=== PATIENT | male | born 1950 | race Caucasian/White ===

== ENCOUNTER 2019-06-17 12:49 | Observation (INO) ==
[2019-06-17 13:24] LABS: Microscopic, Urine URINE MICROSCOPIC (MICROSCOPIC)
[2019-06-17 13:28] LABS: Appearance,Urine CLEAR (Clear); Blood, Urine Negative (Negative); Color,Urine YELLOW (Yellow); Glucose,Urine (UA) Negative (Negative); Ketones,Urine TRACE (Negative); Leukocyte Esterase,Urine 1+ (Negative); PH,Urine 5.5 (5.0-8.5); Protein,Urine Negative (Negative); Specific Gravity, Urine >= 1.030 (1.005-1.030); Urobilinogen,Urine 0.2 EU/dl (0.2)
--- NOTE | 2019-06-17 13:29 | Emergency Department Note ---
ED Disposition Clinical Impression: Sinus bradycardia, Pre-syncope, Urinary tract infection Disposition: Admitted as Observation Condition on Discharge: Serious Referrals: Provider,Referral, [Primary Care Provider] - Time of Disposition: 15:06 - Critical Care Critical Care Time: No Attestation: On 06/17/19, the high probability of a clinically significant, sudden or life threatening deterioration of the following system(s) required my full and direct attention, intervention and personal management. The time I documented below is in addition to time spent performing reported procedures but includes the following listed in this critical care notation. Medical Decision Making - Medical Records Medical records reviewed: Yes: I reviewed the patient's medical records. - Fabio Inquiry Pt receiving controlled substance: No Vital Signs: 06/17/19 13:08 06/17/19 13:12 Temperature 97.6 F 97.6 F Temperature Source Oral Oral Pulse Rate [Left] 85 86 Respiratory Rate 18 20 Blood Pressure [Left Arm] 166/86 H 166/86 H Blood Pressure Mean [Left Arm] 112 112 Blood Pressure Source [Left Arm] Automatic Cuff Automatic Cuff Blood Pressure Position [Left Arm] Sitting Sitting 02 Sat by Pulse Oximetry 98 96 Oxygen Delivery Method Room Air - Lab Data Lab results reviewed: Yes: I reviewed the patient's lab results. Lab Results 06/17/19 13:11: Urine Color Yellow, Urine Appearance Clear, Urine pH 5.5, Ur Specific [place] >= 1.030, Urine Protein Negative, Urine Glucose (UA) Negative, Urine Ketones Trace, Urine Blood Negative, Urine Nitrate Positive, Urine Bilirubin Negative, Urine Urobilinogen 0.2, Ur Leukocyte Esterase 1+ A, Urine RBC None, Urine WBC 50-100, Ur Squamous Epith Cells 5-10, Urine Bacteria 3+ 06/17/19 13:33: WBC 10.7, RBC 5.16, Hgb 16.1, Hct 47.3, MCV 91.7, MCH 31.2, MCHC 34.1, RDW 13.7, Plt Count 181, MPV 8.5, Neut % (Auto) 68.8, Lymph % (Auto) 22.0, [place] % (Auto) 5.1, Eos % (Auto) 3.4, Baso % (Auto) 0.8, Neut # (Auto) 7.4, Lymph # (Auto) 2.4, [place] # (Auto) 0.5, Eos # (Auto) 0.4, Baso # (Auto) 0.1 06/17/19 13:33: Sodium 136, Potassium 3.6, Chloride 102, Carbon Dioxide 28, Anion Gap 9.6, BUN 19 H, Creatinine 1.46 H, Estimated Creat Clear 47, Estimated GFR 48 L, Est GFR ( Amer) 58 L, Glucose 71 L, Calcium 8.6, Total Bilirubin 0.5, AST 15, ALT 14, Alkaline Phosphatase 100, Troponin I < 0.02, Total Protein 7.6, Albumin 4.0, Globulin 3.6 H, Albumin/Globulin Ratio 1.1 06/17/19 13:33: Magnesium 2.1 Result diagrams: 06/17/19 13:33 06/17/19 13:33 Orders (Tests/Meds): ED MEDICATIONS Discontinued Medications Generic Name Dose Route Start Last Admin Trade Name Freq PRN Reason Stop Dose Admin Sodium Chloride 1,000 mls @ 999 mls/hr 06/17/19 13:30 06/17/19 13:24 Sod Chlor 0.9% 1000ml Bag IV 06/17/19 14:30 999 mls/hr .Q1H1M TRISH Administration ORDERS Category Date Time Status Chest XR 2 view (NOT portable) [XR chest 2V] Stat Exams 06/17/19 13:19 Taken Lactic Acid Stat Lab 06/17/19 15:04 Ordered Troponin I Q3H Lab 06/17/19 16:30 Ordered Troponin I Q3H Lab 06/17/19 19:30 Ordered Urine Culture Stat Micro 06/17/19 13:11 Received - ECG Data Tracing #1 I reviewed this ECG and interpreted as documented below: ECG initial impression date: 06/17/19 ECG initial impression time: 13:18 Normal Sinus Rhythm: No (Sinus bradycardia) Arrhythmias present: sinus pasha Additional Comments: Sinus bradycardia otherwise normal EKG. General Adult HPI - General Chief complaint: Dizziness Stated complaint: Dizziness and neck pain Time Seen by Provider: 06/17/19 13:10 Mode of Arrival: Ambulatory Limitations: No Limitations Description of Symptoms (Recalled from ER Triage Doc. by RN): Patient reports getting choked while eating lunch and now is expereincing dizziness and neck pain. - History of Present Illness HPI narrative: 69-year old male presents to the emergency department with lightheadedness after a choking episode today. However, the patient states he has had lightheadedness for the past couple of weeks. Onset (ago): hour(s) (1) Location: head Severity: moderate Consistency: intermittent Relieving factors: none Exacerbating factors: none Associated symptoms: malaise, weakness, other (Presyncope) Treatments prior to arrival: none - Related Data Home Medications Medication Instructions Recorded Confirmed Lisinopril [Lisinopril 40mg Tablet] 40 mg PO DAILY 06/17/19 06/17/19 Allergies Allergy/AdvReac Type Severity Reaction Status Date / Time No Known Allergies Allergy Unknown Uncoded 07/11/17 15:21 [facility] History - Hepatitis A Screen Drug use history?: No High risk sexual behaviors?: No History of sexually transmitted infection?: No Currently employed?: No Childcare worker?: No Do you have indoor plumbing?: Yes Do you have electricity?: Yes Attestation statement:: This patient has been screened for Hepatitis A risk factors. I have reviewed the patient's past medical history: Yes Medical History: Reports:: Coronary Artery Disease, Hypertension Denies:: Cancer, Diabetes Mellitus Type 1, Diabetes Mellitus Type 2 Other Surgeries: Yes: Cardiac Catheterization (Stents placed 15 years ago.) - Social History Smoking Status: Current every day smoker Tobacco Type: cigarettes # Packs/Day (cigarettes): 1 Alcohol Intake: never Occupational Status: retired Family Hx:: Coronary Artery Disease, Hypertension ROS Obtained: Yes All systems reviewed & no additional complaints - Constitutional Constitutional: Reports malaise, Reports weakness - Eyes Eyes: Reports system reviewed and no additional complaints, except as docu - ENT Ears, Nose, Mouth, and Throat: Reports system reviewed and no additional complaints, except as docu - Cardiovascular Cardiovascular: Reports slow heart rate, Reports other (Lightheadedness) - Respiratory Respiratory: Yes system reviewed and no additional complaints, except as docu - Gastrointestinal Gastrointestingal: Reports: system reviewed and no additional complaints, except as docu - Genitourinary Male Genitourinary: Reports system reviewed and no additional complaints, except as docu - Musculoskeletal Musculoskeletal: Reports system reviewed and no additional complaints, except as docu - Integumentary/Breasts Skin/Breast: Reports system reviewed and no additional complaints, except as docu - Neurologic Neurologic: Reports system reviewed and no additional complaints, except as docu - Endocrine Endocrine: Reports system reviewed and no additional complaints, except as docu - Hematologic/Lymphatic Henatologic/Lymphatic: Reports system reviewed and no additional complaints, except as docu - Allergic/Immunologic Allergic/Immunologic: Reports system reviewed and no additional complaints, except as docu Physical Exam - General General appearance: alert, anxious - Head Head exam: atraumatic, normocephalic, normal inspection - Eye Eye exam: Present: normal appearance, PERRL, EOMI - ENT ENT exam: Present: normal exam - Neck Neck exam: Present: normal inspection, full ROM, trachea midline. Absent: meningismus, lymphadenopathy - Chest Chest inspection: Present: normal inspection, symmetric chest wall rise. Ab sent: tenderness - Respiratory Respiratory exam: Present: normal lung sounds bilaterally. Absent: respiratory distress - Cardiovascular Cardiovascular exam: Present: normal rhythm, bradycardia, normal heart sounds - Abdominal Exam Abdominal exam: Present: soft, normal bowel sounds. Absent: distention, tenderness, guarding - Extremities Exam Extremities exam: Present: normal inspection, full ROM, normal capillary refill. Absent: calf tenderness - Back Exam Back exam: Present: normal inspection. Absent: tenderness - Neurological Exam Neurological exam: Present: alert, oriented X3, CN II-XII intact, normal gait, reflexes normal. Absent: motor sensory deficit - Psychiatric Psychiatric exam: Present: normal affect, normal mood - Skin Skin exam: Present: warm, dry, intact, normal color - Lymphatic Lymphatic Findings: no adenopathy
[2019-06-17 13:41] LABS: Bilirubin,Urine Negative (Negative)
[2019-06-17 13:49] LABS: Bacteria,Urine 3+ /lpf; WBC,Urine 50-100 #/hpf (0-3)
[2019-06-17 13:56] LABS: Alanine Aminotransferase 14 U/L (12-78); Albumin/Globulin Ratio 1.1 (1.1-1.8); Alkaline Phosphatase 100 U/L (46-116); Anion Gap 9.6 mEq/L (5-15); Aspartate Amino Transferase 15 U/L (15-37); Bilirubin,Total 0.5 mg/dL (0.2-1.0); Blood Urea Nitrogen 19 mg/dL (7-18); Calcium 8.6 mg/dL (8.5-10.1); Carbon Dioxide 28 mmol/L (21.0-32.0); Chloride 102 mmol/L (98-107); Globulin 3.6 gm/dl (1.3-3.2); Glucose 71 mg/dL (74-106); Sodium 136 mmol/L (136-145); Total Protein,Serum 7.6 gm/dL (6.4-8.2)
[2019-06-17 14:17] LABS: Basophils # 0.1 K/mm3 (0-0.2); Basophils % 0.8 % (0.1-2.0); Eosinophils # 0.4 K/mm3 (0.0-0.4); Eosinophils % 3.4 % (0.1-12.0); Hematocrit 47.3 % (42.0-52.0); Hemoglobin 16.1 g/dL (14.1-18.0); Lymphocytes # 2.4 K/mm3 (0.7-4.5); Mean Corpuscular HGB Conc 34.1 g/dL (31.8-35.4); Mean Corpuscular Volume 91.7 fl (80-94); Mean Platelet Volume 8.5 fl (7.4-10.4); Monocytes # 0.5 K/mm3 (0.1-1.0); Monocytes % 5.1 % (1.7-9.3); Neutrophils # 7.4 K/mm3 (1.8-7.8); Neutrophils % 68.8 % (37.0-80.0); Platelet Count 181 K/mm3 (142-424); Red Blood Count 5.16 M/mm3 (4.60-6.20); Red Cell Distribution Width 13.7 % (11.5-17.5); White Blood Count 10.7 K/mm3 (4.8-10.8)
--- NOTE | 2019-06-17 17:02 | History & Physical Report ---
*Admission Date: 06/17/19 *Chief complaint: dizziness *History of present illness: Patient is a 69-year-old male who presented to our ED with syncopal episodes and dizziness at work. He mentions that he has been suffering with dizziness for the past few months. His physician is Dr. Lake is at [place] and was trying to get ultrasound of his carotids for quite some time now but never got around actually getting the ultrasound. He denies being on any hyperlipidemia medications at this time. He endorses of having essential hypertension and takes lisinopril at home. In the ED his work-up was benign except for mild leukoesterase in his urine. Ultrasound obtained earlier today showed 75 to 99% stenosis on the right internal carotid. [facility] History I have reviewed the patient's past medical history: Yes Medical History: Reports:: Coronary Artery Disease, Hypertension Denies:: Cancer, Diabetes Mellitus Type 1, Diabetes Mellitus Type 2 *Have you ever received a pneumonia vaccine?: No *Have you received a flu vaccine this season?: No Other Surgeries: Yes: Cardiac Catheterization (Stents placed 15 years ago.) - *Social History Smoking Status: Current every day smoker Tobacco Type: cigarettes # Packs/Day (cigarettes): 1 Alcohol Intake: never Substance Use Type: marijuana Last Used Substance: days (ago) *Occupational Status:: retired *Travel in the last 8 weeks: None Family Hx:: Coronary Artery Disease, Hypertension Review of Systems - Constitutional Reports fatigue - Eyes Denies change in vision - ENT Denies bleeding gums, Denies dry mouth, Denies difficulty swallowing - *Cardiovascular Denies chest pain, Denies chest pain at rest, Denies chest pain with activity - *Respiratory Denies change in phlegm color, Denies chest congestion, Denies cough - *Gastrointestinal Denies abdominal pain, Denies change in bowel habits, Denies coffee ground vomit - *Genitourinary Denies difficulty urinating, Denies painful urination - *Musculoskeletal Denies abnormal walking, Denies decreased muscle mass - Integumentary/Breasts Denies bleeding lesions, Denies change in hair - *Neurologic Reports weakness, Denies abnormal hearing - Psychiatric Denies abnormal sleep pattern, Denies lack of enjoyment - Endocrine Denies excessive sweating - Hematologic/Lymphatic Denies easy bruising - Allergic/Immunologic Denies GI upset with certain foods, Denies itchy eyes Meds Home Medications Medication Instructions Recorded Confirmed Type Lisinopril [Lisinopril 40mg Tablet] 40 mg PO DAILY 06/17/19 06/17/19 History Allergies Allergy/AdvReac Type Severity Reaction Status Date / Time No Known Allergies Allergy Unverified 06/17/19 15:53 Exam Vital signs and Labs for Last 24 Hours: Temp Pulse Resp BP Pulse Ox 97.6 F 86 20 166/86 H 96 06/17/19 15:29 06/17/19 15:29 06/17/19 15:29 06/17/19 15:29 06/17/19 13:12 Laboratory Results - last 24 hr 06/17/19 13:11: Urine Color Yellow, Urine Appearance Clear, Urine pH 5.5, Ur Specific [place] >= 1.030, Urine Protein Negative, Urine Glucose (UA) Negative, Urine Ketones Trace, Urine Blood Negative, Urine Nitrate Positive, Urine Bilirubin Negative, Urine Urobilinogen 0.2, Ur Leukocyte Esterase 1+ A, Urine RBC None, Urine WBC 50-100, Ur Squamous Epith Cells 5-10, Urine Bacteria 3+ 06/17/19 13:33: WBC 10.7, RBC 5.16, Hgb 16.1, Hct 47.3, MCV 91.7, MCH 31.2, MCHC 34.1, RDW 13.7, Plt Count 181, MPV 8.5, Neut % (Auto) 68.8, Lymph % (Auto) 22.0, [place] % (Auto) 5.1, Eos % (Auto) 3.4, Baso % (Auto) 0.8, Neut # (Auto) 7.4, Lymph # (Auto) 2.4, [place] # (Auto) 0.5, Eos # (Auto) 0.4, Baso # (Auto) 0.1 06/17/19 13:33: Sodium 136, Potassium 3.6, Chloride 102, Carbon Dioxide 28, Anion Gap 9.6, BUN 19 H, Creatinine 1.46 H, Estimated Creat Clear 47, Estimated GFR 48 L, Est GFR ( Amer) 58 L, Glucose 71 L, Calcium 8.6, Total Bilirubin 0.5, AST 15, ALT 14, Alkaline Phosphatase 100, Troponin I < 0.02, Total Protein 7.6, Albumin 4.0, Globulin 3.6 H, Albumin/Globulin Ratio 1.1 06/17/19 13:33: Magnesium 2.1 I & O for Last 24 hours: Intake & Output 06/15/19 06/16/19 06/17/19 06/18/19 11:59 11:59 11:59 11:59 Weight 153 lb - *Routine HEENT Exam Head: Present: normocephalic Eye: Present: EOMI, PERRL ENT: Present: mucous membranes dry - *Routine Neck Exam Present: supple. Absent: lymphadenopathy - *Routine Respiratory Exam Present: CTA bilaterally - *Routine Cardiovascular Exam Present: RRR Comments: carotid bruit noted on right - *Routine Abdominal Exam Present: soft, normoactive bowel sounds. Absent: tenderness - *Routine Extremities Exam Absent: cyanosis, clubbing, edema - *Routine Skin Exam Present: warm. Absent: rash - *Routine Neurological Exam Present: alert, oriented X3 Assessment and Plan (1) Pre-syncope Current visit: Yes Status: Acute Category: Medical Code(s): R55 - Syncope and collapse (2) Urinary tract infection Current visit: Yes Status: Acute Category: Medical Code(s): N39.0 - Urinary tract infection, site not specified (3) Stenosis of carotid artery Current visit: Yes Status: Acute Category: Medical Code(s): I65.29 - Occlusion and stenosis of unspecified carotid artery (4) Tobacco dependence Current visit: Yes Status: Acute Category: Medical Code(s): F17.200 - Nicotine dependence, unspecified, uncomplicated (5) HTN (hypertension) Current visit: Yes Status: Acute Category: Medical Code(s): I10 - Essential (primary) hypertension - Assessment and plan all Dx Assessment and Plan for all problems:: monitor for tonight, possible dc tommorow with outpatient vascular surgery f/u
[2019-06-18 06:05] LABS: Basophils # 0.1 K/mm3 (0-0.2); Basophils % 1.4 % (0.1-2.0); Eosinophils # 0.3 K/mm3 (0.0-0.4); Eosinophils % 4.9 % (0.1-12.0); Hematocrit 46.9 % (42.0-52.0); Hemoglobin 16.1 g/dL (14.1-18.0); Lymphocytes # 1.8 K/mm3 (0.7-4.5); Lymphocytes % 29.5 % (10-50); Mean Corpuscular HGB Conc 34.2 g/dL (31.8-35.4); Mean Corpuscular Volume 92.1 fl (80-94); Mean Platelet Volume 7.7 fl (7.4-10.4); Monocytes # 0.4 K/mm3 (0.1-1.0); Monocytes % 7.1 % (1.7-9.3); Neutrophils # 3.6 K/mm3 (1.8-7.8); Neutrophils % 57.3 % (37.0-80.0); Platelet Count 164 K/mm3 (142-424); Red Cell Distribution Width 13.7 % (11.5-17.5); White Blood Count 6.2 K/mm3 (4.8-10.8)
[2019-06-18 06:09] LABS: INR 1.03 (0.9-1.1); Prothrombin Time 10.7 seconds (9.4-11.8)
[2019-06-18 06:21] LABS: Albumin Level 3.8 gm/dL (3.4-5.0); Anion Gap 11.5 mEq/L (5-15); Bilirubin,Total 0.4 mg/dL (0.2-1.0); Calcium 8.5 mg/dL (8.5-10.1); Chol/HDL Ratio 5.8 (1-3.5); Globulin 3.8 gm/dl (1.3-3.2); Phosphorous 2.8 mg/dL (2.4-4.9); Total Protein,Serum 7.6 gm/dL (6.4-8.2)
--- NOTE | 2019-06-18 07:49 | Progress Note ---
<Elza Zuniga - Last Filed: 06/18/19 08:39> Internal Medicine - PN: Subj *Date: 06/18/19 *Time: 08:39 Interval history: Patient is comfortable this morning. He is ambulated in the room without difficulty. He denies dizziness, chest pain, and shortness of breath. He is curious about the plan for today. He is n.p.o. for cardiology consult. He is hungry and would like to eat. He is voiding QS. Exam Vital signs and Labs for Last 24 Hours: Temp Pulse Resp BP Pulse Ox 98.6 F 58 L 17 160/85 H 97 06/18/19 04:00 06/18/19 04:00 06/18/19 04:00 06/18/19 04:00 06/18/19 04:00 Laboratory Results - last 24 hr 06/17/19 13:11: Urine Color Yellow, Urine Appearance Clear, Urine pH 5.5, Ur Specific [place] >= 1.030, Urine Protein Negative, Urine Glucose (UA) Negative, Urine Ketones Trace, Urine Blood Negative, Urine Nitrate Positive, Urine Bilirubin Negative, Urine Urobilinogen 0.2, Ur Leukocyte Esterase 1+ A, Urine RBC None, Urine WBC 50-100, Ur Squamous Epith Cells 5-10, Urine Bacteria 3+ 06/17/19 13:33: WBC 10.7, RBC 5.16, Hgb 16.1, Hct 47.3, MCV 91.7, MCH 31.2, MCHC 34.1, RDW 13.7, Plt Count 181, MPV 8.5, Neut % (Auto) 68.8, Lymph % (Auto) 22.0, [place] % (Auto) 5.1, Eos % (Auto) 3.4, Baso % (Auto) 0.8, Neut # (Auto) 7.4, Lymph # (Auto) 2.4, [place] # (Auto) 0.5, Eos # (Auto) 0.4, Baso # (Auto) 0.1 06/17/19 13:33: Sodium 136, Potassium 3.6, Chloride 102, Carbon Dioxide 28, Anion Gap 9.6, BUN 19 H, Creatinine 1.46 H, Estimated Creat Clear 47, Estimated GFR 48 L, Est GFR ( Amer) 58 L, Glucose 71 L, Calcium 8.6, Total Bilirubin 0.5, AST 15, ALT 14, Alkaline Phosphatase 100, Troponin I < 0.02, Total Protein 7.6, Albumin 4.0, Globulin 3.6 H, Albumin/Globulin Ratio 1.1 06/17/19 13:33: Magnesium 2.1 06/17/19 16:45: Lactate 0.8 06/18/19 00:10: Troponin I < 0.02 06/18/19 05:45: WBC 6.2 D, RBC 5.10, Hgb 16.1, Hct 46.9, MCV 92.1, MCH 31.5 H, MCHC 34.2, RDW 13.7, Plt Count 164, MPV 7.7, Neut % (Auto) 57.3, Lymph % (Auto) 29.5, [place] % (Auto) 7.1, Eos % (Auto) 4.9, Baso % (Auto) 1.4, Neut # (Auto) 3.6, Lymph # (Auto) 1.8, [place] # (Auto) 0.4, Eos # (Auto) 0.3, Baso # (Auto) 0.1 06/18/19 05:45: PT 10.7, INR 1.03 06/18/19 05:45: Sodium 135 L, Potassium 3.5, Chloride 103, Carbon Dioxide 24, Anion Gap 11.5, BUN 15, Creatinine 0.98 D, Estimated Creat Clear 65, Estimated GFR 76, Est GFR ( Amer) 92 D, Glucose 91 D, Calcium 8.5, Phosphorus 2.8, Magnesium 2.0, Total Bilirubin 0.4, AST 15, ALT 16, Alkaline Phosphatase 102, Total Protein 7.6, Albumin 3.8, Globulin 3.8 H, Albumin/Globulin Ratio 1.0 L, Triglycerides 104, Cholesterol 150, LDL Cholesterol 103, VLDL Cholesterol 21, HDL Cholesterol 26 L, Cholesterol/HDL Ratio 5.8 H I & O for Last 24 hours: Intake & Output 06/15/19 06/16/19 06/17/19 06/18/19 11:59 11:59 11:59 11:59 Intake Total 120 / 120 Balance 120 / 120 Weight 144 lb 3 oz Radiology Reports for the Last 24 Hours: 06/17/2019 chest x-ray IMPRESSION: Coarsened bronchovascular markings suggesting bronchitis. 06/17/2019 CT of the head IMPRESSION: 1. No acute intracranial findings. 2. Ethmoid sinus disease - Constitutional no acute distress Comments: Appears comfortable - *Routine Respiratory Exam Comments: Few bilateral scattered rhonchi - *Routine Cardiovascular Exam Present: RRR - *Routine Abdominal Exam Present: soft, normoactive bowel sounds. Absent: tenderness - *Routine Extremities Exam Present: pulses intact. Absent: edema, calf tenderness - *Routine Neurological Exam Present: alert, oriented X3 Assessment and Plan (1) Pre-syncope Current visit: Yes Status: Acute Category: Medical Code(s): R55 - Syncope and collapse (2) Urinary tract infection Current visit: Yes Status: Acute Category: Medical Code(s): N39.0 - Urinary tract infection, site not specified (3) Stenosis of carotid artery Current visit: Yes Status: Acute Category: Medical Code(s): I65.29 - Occlusion and stenosis of unspecified carotid artery (4) Tobacco dependence Current visit: Yes Status: Acute Category: Medical Code(s): F17.200 - Nicotine dependence, unspecified, uncomplicated (5) HTN (hypertension) Current visit: Yes Status: Acute Category: Medical Code(s): I10 - Essential (primary) hypertension - Assessment and plan all Dx Assessment and Plan for all problems:: Continue with antibiotic for UTI. Cardiology consult this morning. As per Dr. Negrete note probably discharge with follow-up appointment with vascular surgeon. <Virginia Negrete - Last Filed: 06/18/19 08:53> Internal Medicine - PN: Subj *Date: 06/18/19 *Time: 08:52 Exam Vital signs and Labs for Last 24 Hours: Temp Pulse Resp BP Pulse Ox 97.9 F 56 L 18 168/93 H 98 06/18/19 07:54 06/18/19 07:54 06/18/19 07:54 06/18/19 07:54 06/18/19 07:54 Laboratory Results - last 24 hr 06/17/19 13:11: Urine Color Yellow, Urine Appearance Clear, Urine pH 5.5, Ur Specific [place] >= 1.030, Urine Protein Negative, Urine Glucose (UA) Negative, Urine Ketones Trace, Urine Blood Negative, Urine Nitrate Positive, Urine Bilirubin Negative, Urine Urobilinogen 0.2, Ur Leukocyte Esterase 1+ A, Urine RBC None, Urine WBC 50-100, Ur Squamous Epith Cells 5-10, Urine Bacteria 3+ 06/17/19 13:33: WBC 10.7, RBC 5.16, Hgb 16.1, Hct 47.3, MCV 91.7, MCH 31.2, MCHC 34.1, RDW 13.7, Plt Count 181, MPV 8.5, Neut % (Auto) 68.8, Lymph % (Auto) 22.0, [place] % (Auto) 5.1, Eos % (Auto) 3.4, Baso % (Auto) 0.8, Neut # (Auto) 7.4, Lymph # (Auto) 2.4, [place] # (Auto) 0.5, Eos # (Auto) 0.4, Baso # (Auto) 0.1 06/17/19 13:33: Sodium 136, Potassium 3.6, Chloride 102, Carbon Dioxide 28, Anion Gap 9.6, BUN 19 H, Creatinine 1.46 H, Estimated Creat Clear 47, Estimated GFR 48 L, Est GFR ( Amer) 58 L, Glucose 71 L, Calcium 8.6, Total Biliru bin 0.5, AST 15, ALT 14, Alkaline Phosphatase 100, Troponin I < 0.02, Total Protein 7.6, Albumin 4.0, Globulin 3.6 H, Albumin/Globulin Ratio 1.1 06/17/19 13:33: Magnesium 2.1 06/17/19 16:45: Lactate 0.8 06/18/19 00:10: Troponin I < 0.02 06/18/19 05:45: WBC 6.2 D, RBC 5.10, Hgb 16.1, Hct 46.9, MCV 92.1, MCH 31.5 H, MCHC 34.2, RDW 13.7, Plt Count 164, MPV 7.7, Neut % (Auto) 57.3, Lymph % (Auto) 29.5, [place] % (Auto) 7.1, Eos % (Auto) 4.9, Baso % (Auto) 1.4, Neut # (Auto) 3.6, Lymph # (Auto) 1.8, [place] # (Auto) 0.4, Eos # (Auto) 0.3, Baso # (Auto) 0.1 06/18/19 05:45: PT 10.7, INR 1.03 06/18/19 05:45: Sodium 135 L, Potassium 3.5, Chloride 103, Carbon Dioxide 24, Anion Gap 11.5, BUN 15, Creatinine 0.98 D, Estimated Creat Clear 65, Estimated GFR 76, Est GFR ( Amer) 92 D, Glucose 91 D, Calcium 8.5, Phosphorus 2.8, Magnesium 2.0, Total Bilirubin 0.4, AST 15, ALT 16, Alkaline Phosphatase 102, Total Protein 7.6, Albumin 3.8, Globulin 3.8 H, Albumin/Globulin Ratio 1.0 L, Triglycerides 104, Cholesterol 150, LDL Cholesterol 103, VLDL Cholesterol 21, HDL Cholesterol 26 L, Cholesterol/HDL Ratio 5.8 H I & O for Last 24 hours: Intake & Output 06/15/19 06/16/19 06/17/19 06/18/19 11:59 11:59 11:59 11:59 Intake Total 120 / 120 Balance 120 / 120 Weight 144 lb 3 oz Microbiology Reports for the Last 24 Hours: Microbiology 06/17/19 13:11 Urine,Random Urine Culture - Preliminary Gram Negative Rods Assessment and Plan (1) Pre-syncope Current visit: Yes Status: Acute Category: Medical Code(s): R55 - Syncope and collapse (2) Urinary tract infection Current visit: Yes Status: Acute Category: Medical Code(s): N39.0 - Urinary tract infection, site not specified (3) Stenosis of carotid artery Current visit: Yes Status: Acute Category: Medical Code(s): I65.29 - Occlusion and stenosis of unspecified carotid artery (4) Tobacco dependence Current visit: Yes Status: Acute Category: Medical Code(s): F17.200 - Nicotine dependence, unspecified, uncomplicated (5) HTN (hypertension) Current visit: Yes Status: Acute Category: Medical Code(s): I10 - Essential (primary) hypertension - Assessment and plan all Dx Assessment and Plan for all problems:: discharge today with vascular surgery f/u if cardiology agrees
--- NOTE | 2019-06-18 07:58 | Pharmacy Consult Notes ---
[facility] Pharmacy VTE Monitoring - Patient Demographics Admission date: 06/17/19 Report Date: 06/18/19 Time: 07:57 Allergies/Adverse Reactions: Patient Allergies No Known Allergies Allergy (Unverified 06/17/19 15:53) Height: 1.73 m Weight: 65.402 kg Patient Problems: Current Active Problems Sinus bradycardia (Acute) Pre-syncope (Acute) Urinary tract infection (Acute) Stenosis of carotid artery (Acute) Tobacco dependence (Acute) HTN (hypertension) (Acute) - VTE Risk Labs: VTE Related Lab Results Hgb 16.1 g/dL (14.1-18.0) 06/18/19 05:45 Hct 46.9 % (42.0-52.0) 06/18/19 05:45 Plt Count 164 K/mm3 (142-424) 06/18/19 05:45 PT 10.7 seconds (9.4-11.8) 06/18/19 05:45 INR 1.03 (0.9-1.1) 06/18/19 05:45 BUN 15 mg/dL (7-18) 06/18/19 05:45 Creatinine 0.98 mg/dL (0.70-1.30) D 06/18/19 05:45 Estimated Creat Clear 65 mL/min (50-200) 06/18/19 05:45 Clinical Trial Participant: Yes - Prophylaxis Types of VTE Prophylaxis: TEDS Knee High
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
--- NOTE | 2019-06-18 11:38 | Electrocardiograph Report ---
APPROVED REPORT Exam: Resting ECG HR:51 bpm ECG Measurements Heart Rate 51 AXES [place] 158 P 64 QRSd 76 QRS 78 QT 444 T54 QTc 409 <Conclusion> Sinus bradycardia Otherwise normal ECG Electronically signed by : Erick Waller, 06/18/2019 11:38:22
--- NOTE | 2019-06-18 22:07 | Cardiology Report ---
APPROVED REPORT EXAM: Comprehensive 2D, Doppler, and color-flow Echocardiogram [employer]ist: Louisa Marlow, RT(R) Ht: 5 ft 8 in Wt: 153lbs BSA: 1.82 BP: 168/93 mmHg Indications: Smoker, syncope, HTN, CAD, 4 cardiac stents 2007, SHAMAR, hx FL 2D Dimensions Aortic Root 2.60 cm M: 3.1 - 3.7 Left Atrium 4.10 cm M: 3.0 - 4.0 LVOT 1.93 cm (M/F) 1.5-2.5 M-Mode Dimensions RVDd 2.15 cm (0.9-2.6)LVDd 4.01 cm (3.5-5.7) LVDs 3.11 cm (3.5-5.7)IVSd 1.22 cm (0.6-1.1) PWd 1.04 cm (0.6-1.1)EF (Teich) 45.70% FS 22.40% EDV (Teich) 70.40 mL ESV (Teich) 38.20 mL LV Diastology E/A Ratio 1.15 Mitral Valve MV A Velocity 53.00 (40-130 cm/s) Left Ventricle Left atrium is mildly enlarged, left ventricle is normal size, mild concentric left ventricular hypertrophy, visually estimated ejection fraction 45%, there is moderate hypokinesis involving the inferior basal and posterolateral wall. Diastolic parameters are inconclusive. Right Ventricle Right atrium and left ventricular normal size and contractility. Aortic Valve Aortic valve is minimally thickened and fibrosed. There is no aortic stenosis aortic insufficiency. Mitral Valve Mitral valve is grossly normal, there is mild mitral regurgitation. Tricuspid Valve Tricuspid valve is grossly normal, there is mild tricuspid regurgitation. Pulmonic Valve Pulmonic valve is poorly visualized. Great Vessels Aortic root is normal size. Pericardium No significant pericardial effusion noted. Conclusion 1. Mildly enlarged left atrium, normal left ventricular size, mild concentric left ventricular hypertrophy, visually estimated ejection fraction 45% with segmental wall motion abnormality described above, diastolic parameters are inconclusive. 2. Mild mitral and tricuspid regurgitation. 3. No significant pericardial effusion noted. Electronically signed by : Tomy Chen, 06/18/2019 22:07:16
--- NOTE | 2019-06-19 14:18 | Cardiology Report ---
APPROVED REPORT Focuser: HYUN Laterality: Bilateral Indications: pre-syncopal episdoes Risk Factors Hypertension: Hyperlipidemia CAD, Smoking Doppler Spectral Velocity Analysis ECA (R) 89.90/14.80 cm/sECA (L) 62.90/12.00 cm/s dICA (R) 55.60/23.00 cm/sdICA (L) 82.30/20.60 cm/s Yonis (R) 234.00/105.90 cm/smICA (L) 99.90/35.70 cm/s pICA (R) 536.00/224.50 cm/spICA (L) 108.50/27.60 cm/s dCCA (R) 62.60/18.20 cm/sdCCA (L) 79.10/20.90 cm/s pCCA (R) 54.30/12.40 cm/spCCA (L) 77.00/16.60 cm/s Vert (R) 56.10/15.50 cm/sVert (L) 30.20/8.30 cm/s ICA/CCA 8.56 ICA/CCA 1.37 Findings Duplex evaluation demonstrates stenosis of the right proximal internal carotid artery in the range of 70-99% with PSV =140 cm/sec, EDV =100 cm/sec, or IC/CC Ratio =4.0.Duplex evaluation demonstrates stenosis of the left proximal internal carotid artery in the range of 20-49%(lower-middle of scale) with PSV <140 cm/sec, EDV <100 cm/sec, and IC/CC Ratio <4.0. Incidental finding of a hyperechoic thyroid nodule noted on right. Conclusion Duplex evaluation demonstrates severe stenosis of the right proximal internal carotid artery in the range of 70-99% Duplex evaluation demonstrates stenosis of the left proximal internal carotid artery in the range of 20-49%(lower-middle of scale) Incidental finding of a hyperechoic thyroid nodule noted on right. Consider CTA for further evaluation Critical Notification Critical Value: Yes Physician Notified Date: 06/17/2019 Time: 16:35 Physician Name: Caden Electronically signed by : Jayy Patterson MD 06/19/2019 14:18:10
--- NOTE | 2019-06-22 21:22 | Discharge Summary ---
General - General Admission date:: 06/17/19 Discharge date: 06/18/19 HPI HPI: Patient is a 69-year-old male who presented to our ED with syncopal episodes and dizziness at work. He mentions that he has been suffering with dizziness for the past few months. His physician is Dr. Lake is at [place] and was trying to get an ultrasound of his carotids for quite some time now but never got around to actually getting the ultrasound. He denies being on any hyperlipidemia medications at this time. He endorses having essential hypertension and takes lisinopril at home. In the ED his work-up was benign except for mild leukesterase in his urine. Ultrasound obtained earlier today showed 75 to 99% stenosis on the right internal carotid. Hospital Course Hospital Course: The patient's chest x-ray showed a bronchitis. His carotid ultrasound showed 70-99% stenosis of the right internal carotid artery. He had a CT of the head showing ethmoid sinus disease but nothing acute. He was admitted for overnight monitoring and was started on antibiotics for UTI. The patient did have a heart cath showing severe ostial LAD stenosis with a widely patent proximal to mid vessel stent. It also showed a normal ejection fraction. There was severe right internal carotid artery stenosis on angiogram. Dr. Hernandes felt the patient was an acceptable risk to proceed with carotid endarterectomy. He felt the ostial LAD stenosis could be managed medically. The patient did have an echo showing an EF of 45%. He was stable to be discharged home with a vascular surgery follow-up for his carotid artery stenosis. His urine culture was positive for E. coli and was sensitive to Levaquin. He was discharged home on Levaquin. Objective Vital signs: Temp Pulse Resp BP Pulse Ox 97.1 F L 52 L 20 122/56 L 99 06/18/19 12:15 06/18/19 14:30 06/18/19 14:30 06/18/19 14:30 06/18/19 14:30 Narrative: - *Routine HEENT Exam Head: Present: normocephalic Eye: Present: EOMI, PERRL ENT: Present: mucous membranes dry - *Routine Neck Exam Present: supple. Absent: lymphadenopathy - *Routine Respiratory Exam Present: CTA bilaterally - *Routine Cardiovascular Exam Present: RRR Comments: carotid bruit noted on right - *Routine Abdominal Exam Present: soft, normoactive bowel sounds. Absent: tenderness - *Routine Extremities Exam Absent: cyanosis, clubbing, edema - *Routine Skin Exam Present: warm. Absent: rash - *Routine Neurological Exam Present: alert, oriented X3 DS: Diagnosis - Discharge Diagnosis (1) Pre-syncope Status: Acute (2) Urinary tract infection Status: Acute (3) Stenosis of carotid artery Status: Acute (4) Tobacco dependence Status: Acute (5) HTN (hypertension) Status: Acute Discharge Plan - Patient Discharge Instructions ACTIVITY: Ambulate as tolerated, Limited activity, No heavy lifting DIET: cardiac Patient Instructions: DI for Syncope in Adults (Fainting), DI for Cardiac Catheterization, DI for Urinary Tract Infection (UTI), DI for Surgical Site Infection, DI for Carotid Artery Stenosis - Follow up Plan Follow up with: Jeff Lorenzo [Referring] - 06/19/19 12:40 pm Unknown provider or service follow up:: 06/18/19 14:07 PCP [place] [address] Lorenzo tomorrow at 12:40 pm (already has an appt) Disposition: Home, Self-Residential Medications: Home Medications Medication Instructions Recorded Confirmed Type Lisinopril [Lisinopril 40mg Tablet] 40 mg PO DAILY 06/17/19 06/18/19 History Amlodipine Besylate [Amlodipine 10 mg PO DAILY 06/18/19 06/18/19 History 10mg Tab] Aspirin [Aspirin 325mg Tab] 325 mg PO DAILY 06/18/19 06/18/19 History Atorvastatin Calcium [Lipitor 40mg 40 mg PO HS #30 tab 06/18/19 Rx Tablet] Fluoxetine HCl [Prozac] 10 mg PO DAILY 06/18/19 06/18/19 History levoFLOXacin [Levaquin 500mg 500 mg PO DAILY #5 tab 06/18/19 Rx tab] raNITIdine HCl [Ranitidine HCl] 300 mg PO BID 06/18/19 06/18/19 History Prescriptions/Medication Reconciliation: New levoFLOXacin [Levaquin 500mg tab] 500 mg PO DAILY #5 tab Atorvastatin Calcium [Lipitor 40mg Tablet] 40 mg PO HS #30 tab Continued Amlodipine Besylate [Amlodipine 10mg Tab] 10 mg PO DAILY raNITIdine HCl [Ranitidine HCl] 300 mg PO BID Aspirin [Aspirin 325mg Tab] 325 mg PO DAILY Fluoxetine HCl [Prozac] 10 mg PO DAILY Lisinopril [Lisinopril 40mg Tablet] 40 mg PO DAILY - Problem Reconciliation Problems Reviewed?: Yes
== END 2019-06-18 15:28 | disposition home or self-care (01) ==
LOC: 2ND 12:49 → ER 12:49 → 2ND 15:35
PROVIDERS: ADMIT Emergency Medicine; ATTEND Emergency Medicine
CPT/HCPCS: 36224; 36228; 36415; 70450; 71020; 71046; 80053; 80061; 81001; 83605; 83735; 84100; 84484; 85025; 85610; 87086; 87088; 87186; 90686; 90732; 93005; 93306; 93458; 93880; 96365; 96367; 99152; 99153; 99284; C1725; C1769; G0378; J1644; Q9967

== ENCOUNTER 2022-11-11 07:37 | Emergency (ER) | payer MEDICARE, SELFPAY ==
[2022-11-11 07:43] VITALS: BP 173/89; PULSE 43; O2SAT 99
[2022-11-11 07:51] VITALS: BP 173/89; PULSE 100; RESP 16; TEMP 36.6; O2SAT 100; BMI 22.5
[2022-11-11 08:00] VITALS: BP 155/86; PULSE 43; O2SAT 98
--- NOTE | 2022-11-11 08:10 | HMH.EDEYEP ---
Discharge Plan Disposition Patient Disposition: Home, Self-Care Condition: Fair Chief Complaint: Eye Problems Prescriptions Prescriptions: No Action clopidogrel 75 mg tablet 75 mg PO DAILY Label Comments: TAKE 1 TABLET BY MOUTH ONCE DAILY amlodipine 10 mg tablet 10 mg PO BID Qty: 30 4RF lisinopril 40 MG tablet 40 mg PO DAILY ranitidine HCl 300 MG tablet 300 mg PO BID amlodipine 10 MG tablet 10 mg PO DAILY fluoxetine 10 MG capsule 10 mg PO DAILY atorvastatin 40 MG tablet 40 mg PO HS Qty: 30 0RF aspirin 325 mg tablet 81 mg PO DAILY Referrals Follow up/Referrals: Provider,Referral, MD [Primary Care Provider] - See instructions Activity Restrictions/Add. Instructions Additional Instructions/Restrictions: Please go straight to the eye clinic from here. They are expecting you. Dr. Tate will remove the foreign body in your eye. Return to the emergency department immediately if you are unable to go to this eye clinic. Also return to the emergency department if your symptoms worsen in any way. Clinical Impressions Clinical Impression: Acute foreign body of left cornea, Corneal abrasion Instructions Patient Instructions: DI for Corneal Abrasion Discharge ED Provider: Fly Walker Eye Problem HPI General Chief complaint: Eye Problems Stated complaint: Possible foreign object LT eye AO@home 11/10 Time Seen by Provider: 11/11/22 08:10 Mode of Arrival: Ambulatory Source of Information: Patient Limitations: No Limitations Description of Symptoms (Recalled from ER Triage Doc. by RN): pt comes in for possible foreign body in left eye. pt reports that he was grinding metal yesterday evening and feel like he has something in his eye. pts eye red, swollen. pt states he has no visual deficits. 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 He was grinding metal. His last tetanus immunization was 1 year ago. chief complaint: foreign body Related Data Home Medications Medication Instructions Recorded Confirmed lisinopril 40 mg tablet 40 mg PO DAILY BP 06/17/19 09/30/19 amlodipine 10 mg tablet 10 mg PO DAILY BLOOD PRESSURE 06/18/19 09/30/19 fluoxetine 10 mg capsule 10 mg PO DAILY NERVES 06/18/19 09/30/19 ranitidine HCl 300 mg tablet 300 mg PO BID STOMACH 06/18/19 09/30/19 aspirin 325 mg tablet 81 mg PO DAILY HEART 09/30/19 09/30/19 clopidogrel 75 mg tablet 75 mg PO DAILY 09/30/19 09/30/19 Previous Rx's Medication Instructions Recorded atorvastatin 40 mg tablet 40 mg PO HS #30 tabs 06/18/19 amlodipine 10 mg tablet 10 mg PO BID #30 tabs 09/30/19 Allergies Allergy/AdvReac Type Severity Reaction Status Date / Time No Known Allergies Allergy Verified 09/30/19 09:20 [facility] Disclaimer: The information contained in this section may have been updated after the patient was seen, as this information can be updated by other users. Social History Smoking Status: Never smoker alcohol intake: never substance use type: marijuana current occupational status: retired Travel in the last 8 weeks: Inside the [place] ROS Obtained: Yes All systems reviewed & no additional complaints except as documented Physical Exam General General appearance: alert and in no apparent distress Head Head exam: atraumatic Eye Eye exam: Present PERRL, conjunctival redness (Left) and other (There is a foreign body in the cornea of the left eye on the medial aspect.) ENT ENT exam: Present normal exam Neck Neck exam: Present normal inspection Respiratory Respiratory exam: Present normal lung sounds bilaterally Cardiovascular Cardiovascular exam: Present regular rate Neurological Exam Neurological exam: Present alert and oriented X3 Medical Decision Making Medical Records Medical records reviewed: Yes I reviewed the pa
--- NOTE | 2022-11-11 08:18 | PC.NURSE ---
phone call made to Dr. Tate for consult, message left on voicemail for call back.
[2022-11-11 08:30] VITALS: BP 142/81; PULSE 42; O2SAT 100
--- NOTE | 2022-11-11 08:31 | PC.NURSE ---
Dr. Walker speaking with Dr. Tate at this time
--- NOTE | 2022-11-11 08:56 | PC.NURSE ---
Rounded on patient; call light within reach
[2022-11-11 09:02] VITALS: BP 142/81; PULSE 42; RESP 16; TEMP 36.6; O2SAT 100
[2022-11-11 09:06] VITALS: BP 142/81; PULSE 44; RESP 16; TEMP 36.7
== END 2022-11-11 09:08 | disposition home or self-care (01) ==
PROVIDERS: Emergency Provider Emergency Medicine
DX: S05.02XA Injury of conjunctiva and corneal abrasion without foreign body, left eye, initial encounter (principal); W22.8XXA Striking against or struck by other objects, initial encounter
CPT/HCPCS: 99283; 99284

== ENCOUNTER 2025-01-27 01:51 | Emergency (ER) | payer OTHER, SELFPAY ==
[2025-01-27] VITALS (21 sets, daily range): BP systolic 134–203; BP diastolic 81–109; PULSE 72–95; RESP 14–24; TEMP 36.7; O2SAT 91–97; BMI 22.1
--- NOTE | 2025-01-27 01:54 | ECG_ITS ---
APPROVED REPORT Exam: Resting ECG HR:102 bpm ECG Measurements Heart Rate 102 AXES RI 144 P 83 QRSd 76 QRS 87 QT 350 T 73 QTc 409 Conclusion SINUS TACHYCARDIA MODERATE ST DEPRESSION [0.05+ mV ST DEPRESSION] ABNORMAL ECG UNCONFIRMED REPORT Electronically signed by : MILLER CASAS, 01/27/2025 04:57:41
--- NOTE | 2025-01-27 01:56 | HMH.EDGENADL ---
Discharge Plan Disposition Patient Disposition: Home, Self-Care Prescriptions Prescriptions: New levofloxacin 750 mg tablet 750 mg PO DAILY 5 Days Qty: 5 0RF No Action clopidogrel 75 mg tablet 75 mg PO DAILY Patient Comments: TAKE 1 TABLET BY MOUTH ONCE DAILY amlodipine 10 mg tablet 10 mg PO BID Qty: 30 4RF lisinopril 40 MG tablet 40 mg PO DAILY ranitidine HCl 300 MG tablet 300 mg PO BID amlodipine 10 MG tablet 10 mg PO DAILY fluoxetine 10 MG capsule 10 mg PO DAILY atorvastatin 40 MG tablet 40 mg PO HS Qty: 30 0RF aspirin 325 mg tablet 81 mg PO DAILY Referrals Follow up/Referrals: Provider,Referral, MD [Primary Care Provider, Medical] - See instructions Activity Restrictions/Add. Instructions Additional Instructions/Restrictions: Please take antibiotics as prescribed for treatment of pneumonia. Please follow-up with your PCP for further assessment of the mass noted in your lungs. If you are having worsening or recurrent chest pain, recommend reassessment. Clinical Impressions Clinical Impression: Pneumonia, Chest pain, Mass of lung Print Language Print Language: Ukrainian Discharge ED Provider: Donald Benoit General Adult HPI General Chief complaint: Chest Pain Stated complaint: chest pain Time Seen by Provider: 01/27/25 01:53 History of Present Illness HPI narrative: 74-year-old male with history of hypertension, hyperlipidemia, coronary artery disease status post stents and CABG presents for chest pain. He reports that he has had a cough productive of clear phlegm for the last several days and has been more short of breath than normal. He presents tonight because he had chest pain that awoke him from sleep. Left-sided, sharp. He took some Tylenol. Reports that he did drive back from [place] a couple of weeks ago. Related Data Home Medications ?Medication ?Instructions ?Recorded ?Confirmed lisinopril 40 mg tablet 40 mg PO DAILY BP 06/17/19 09/30/19 amlodipine 10 mg tablet 10 mg PO DAILY BLOOD PRESSURE 06/18/19 09/30/19 fluoxetine 10 mg capsule 10 mg PO DAILY NERVES 06/18/19 09/30/19 ranitidine HCl 300 mg tablet 300 mg PO BID STOMACH 06/18/19 09/30/19 aspirin 325 mg tablet 81 mg PO DAILY HEART 09/30/19 09/30/19 clopidogrel 75 mg tablet 75 mg PO DAILY 09/30/19 09/30/19 Previous Rx's ?Medication ?Instructions ?Recorded atorvastatin 40 mg tablet 40 mg PO HS #30 tabs 06/18/19 amlodipine 10 mg tablet 10 mg PO BID #30 tabs 09/30/19 levofloxacin 750 mg tablet 750 mg PO DAILY 5 days #5 tabs 01/27/25 Allergies Allergy/AdvReac Type Severity Reaction Status Date / Time Penicillins AdvReac Unknown Verified 01/27/25 01:55 allergy reaction [facility] Disclaimer: The information contained in this section may have been updated after the patient was seen, as this information can be updated by other users. Social History Smoking Status: Current every day smoker tobacco type: cigarettes packs per day: 1 alcohol intake: never substance use type: marijuana current occupational status: retired Travel in the last 8 weeks?: Inside the [place] Have you lived/traveled outside US in past 30 days?: No Contact w/someone who lives/traveled outside US past 30 days?: No Exposure to someone with infectious disease in past 14 days?: No Do you have a fever (greater than 100.4 F or 38 C)?: No Have you tested positive for COVID-19?: No Exposed to someone with COVID-19 in past 14 days?: No Do you have a sore throat?: No Do you have a cough?: No Do you have any weakness?: No Do you have any diarrhea?: No Are you experiencing any unusual bleeding?: No Do you have any muscle aches/pain?: No Do you have any abdominal pain?: No Are you experiencing loss of taste or smell?: No Other Medical History Have you received the Flu Vaccine for this season: Yes Have you received the Pneumonia Vaccine: No ROS Obtained: Yes All systems reviewed & no additional complaints except as documented Physical Exam General General appearance: alert and anxious Head Head exam: atraumatic and normocephalic Eye Eye exam: Present normal appearance, PERRL and EOMI ENT ENT exam: Present normal oropharynx and normal external ear exam Neck Neck exam: Present normal inspection and full ROM Chest Chest inspection: Present normal inspection and symmetric chest wall rise; Absent tenderness Respiratory Respiratory exam: Present normal lung sounds bilaterally; Absent respiratory distress Cardiovascular Cardiovascular exam: Present normal rhythm and tachycardia Abdominal Exam Abdominal exam: Present soft; Absent distention, tenderness or guarding Extremities Exam Extremities exam: Present normal inspection; Absent edema or joint swelling Back Exam Back exam: Present normal inspection; Absent tenderness Neurological Exam Neurological exam: Present alert and oriented X3; Absent motor sensory deficit Psychiatric Psychiatric exam: Present normal affect and normal mood Skin Skin exam: Present warm, dry and normal color Lymphatic Lymphatic Findings: no adenopathy Medical Decision Making Medical Records Medical records reviewed: Yes I reviewed the patient's medical records. Screening: Per USPSTF and CDC recommendations, given the prevalence of disease in our region, it is our hospital?s policy to screen for HIV and viral Hepatitis for all patients aged 18 and over and those with ongoing risk factors. Fabio Inquiry Pt receiving controlled substance: No Fabio was queried for this patient: No Vital Signs: 01/27/25 01:57 01/27/25 02:15 01/27/25 02:20 Temperature 98.1 F Temperature Source Temporal Artery Scan Pulse Rate 74 75 Pulse Rate [Right] 95 H Respiratory Rate 14 23 17 Blood Pressure 165/89 H 165/87 H Blood Pressure [Right Arm] 203/109 H Blood Pressure Mean 107 111 Blood Pressure Mean [Right Arm] 140 Blood Pressure Source [Right Arm] Automatic Cuff Blood Pressure Position [Right Arm] Sitting 02 Sat by Pulse Oximetry 95 93 L 93 L Oxygen Delivery Method Room Air 01/27/25 02:25 01/27/25 02:30 01/27/25 02:35 Temperature Temperature Source Pulse Rate 80 80 83 Pulse Rate [Right] Respiratory Rate 24 24 Blood Pressure 154/87 H 148/82 H 152/84 H Blood Pressure [Right Arm] Blood Pressure Mean 117 105 114 Blood Pressure Mean [Right Arm] Blood Pressure Source [Right Arm] Blood Pressure Position [Right Arm] 02 Sat by Pulse Oximetry 92 L 92 L 91 L Oxygen Delivery Method 01/27/25 02:40 01/27/25 03:00 01/27/25 03:05 Temperature Temperature Source Pulse Rate 84 79 77 Pulse Rate [Right] Respiratory Rate Blood Pressure 145/81 H 159/84 H 158/83 H Blood Pressure [Right Arm] Blood Pressure Mean 106 124 122 Blood Pressure Mean [Right Arm] Blood Pressure Source [Right Arm] Blood Pressure Position [Right Arm] 02 Sat by Pulse Oximetry 91 L 92 L 92 L Oxygen Delivery Method 01/27/25 03:20 01/27/25 03:25 01/27/25 03:30 Temperature Temperature Source Pulse Rate 75 77 75 Pulse Rate [Right] Respiratory Rate 19 18 22 Blood Pressure 142/82 H 155/84 H 164/88 H Blood Pressure [Right Arm] Blood Pressure Mean 115 107 113 Blood Pressure Mean [Right Arm] Blood Pressure Source [Right Arm] Blood Pressure Position [Right Arm] 02 Sat by Pulse Oximetry 93 L 94 L 94 L Oxygen Delivery Method 01/27/25 03:35 01/27/25 03:40 01/27/25 04:00 Temperature Temperature Source Pulse Rate 75 78 75 Pulse Rate [Right] Respiratory Rate 22 20 Blood Pressure 147/91 H 156/86 H 160/89 H Blood Pressure [Right Arm] Blood Pressure Mean 108 109 125 Blood Pressure Mean [Right Arm] Blood Pressure Source [Right Arm] Blood Pressure Position [Right Arm] 02 Sat by Pulse Oximetry 94 L 94 L 93 L Oxygen Delivery Method 01/27/25 04:05 01/27/25 04:20 01/27/25 04:55 Temperature Temperature Source Pulse Rate 73 72 Pulse Rate [Right] Respiratory Rate 14 23 Blood Pressure 154/88 H 134/85 160/91 H Blood Pressure [Right Arm] Blood Pressure Mean 116 103 131 Blood Pressure Mean [Right Arm] Blood Pressure Source [Right Arm] Blood Pressure Position [Right Arm] 02 Sat by Pulse Oximetry 95 94 L Oxygen Delivery Method 01/27/25 05:30 Temperature Temperature Source Pulse Rate 77 Pulse Rate [Right] Respiratory Rate 17 Blood Pressure 173/107 H Blood Pressure [Right Arm] Blood Pressure Mean 120 Blood Pressure Mean [Right Arm] Blood Pressure Source [Right Arm] Blood Pressure Position [Right Arm] 02 Sat by Pulse Oximetry 97 Oxygen Delivery Method Lab Data Lab results reviewed: Yes I reviewed the patient's lab results. Lab Results 01/27/25 01:54: WBC 8.8, RBC 4.74, Hgb 14.5, Hct 41.6 L, MCV 87.8, MCH 30.6, MCHC 34.9, RDW 13.4, Plt Count 177, MPV 10.8 H, Neut % (Auto) 62.9, Lymph % (Auto) 25.5, [place] % (Auto) 8.9, Eos % (Auto) 2.0, Baso % (Auto) 0.5, Neut # (Auto) 5.5, Lymph # (Auto) 2.2, [place] # (Auto) 0.8, Eos # (Auto) 0.2, Baso # (Auto) 0.0, D-Dimer 0.90 H, Sodium 139, Potassium 3.2 L, Chloride 102, Carbon Dioxide 28, Anion Gap 12.2, BUN 17, Creatinine 0.70, Estimated Creat Clear 58, Estimated GFR 111, Est GFR ( Amer) 134, Glucose 107 H, Calcium 8.7, Total Bilirubin 0.8, AST 23, ALT 13, Alkaline Phosphatase 112, Troponin I < 0.01, Total Protein 7.5, Albumin 3.8, Globulin 3.7 H, Albumin/Globulin Ratio 1.0 L, Lipase 32, HCV Ab KELLI w/Rflx PCR Qn Negative, HIV Ag/Ab Combo Qual Negative 01/27/25 04:45: Troponin I < 0.01 01/27/25 01:54 01/27/25 01:54 Orders (Tests/Meds): ED MEDICATIONS Generic Name Dose Route Start Last Admin Trade Name Freq PRN Reason Stop Dose Admin Nitroglycerin 0.4 mg 01/27/25 01:53 01/27/25 02:05 Nitroglycerin 0.4mg Sl Tablet SL 02/26/25 01:52 0.4 mg Q5MINP PRN Administration Chest Pain Sodium Chloride 10 ml 01/27/25 02:47 Sodium Chloride 0.9% 10ml Syr (Rad Only) IV 02/26/25 02:46 NEEDED PRN Maintain IV Site Discontinued Medications Generic Name Dose Route Start Last Admin Trade Name Freq PRN Reason Stop Dose Admin Aspirin 324 mg 01/27/25 01:53 01/27/25 02:05 Aspirin 81mg Chewable Tablet PO 01/27/25 01:54 324 mg ONCE ONE Administration Belladonna Alkaloids 60 ml 01/27/25 01:53 01/27/25 02:05 Belladonna Alkaloids 60 Ml Ml PO 01/27/25 01:54 60 ml ONCE ONE Administration Ceftriaxone Sodium 1 gm/ 50 mls @ 100 mls/hr 01/27/25 04:07 01/27/25 04:19 Sodium Chloride IV 01/27/25 04:36 100 mls/hr ONCE ONE Administration Azithromycin 500 mg/ Sodium 250 mls @ 250 mls/hr 01/27/25 04:08 01/27/25 04:40 Chloride IV 01/27/25 04:09 250 mls/hr ONCE ONE Administration Iopamidol 70 ml 01/27/25 02:47 Iopamidol-370 (76%);100ml Bottle IV 01/27/25 02:48 ONCE ONE Sodium Chloride 40 ml 01/27/25 02:47 0.9 % Sodium Chloride 50 Ml Vial IV 01/27/25 02:48 ONCE ONE ORDERS Category Date Time Status CT angio chest PE protocol Stat Cat Scan 01/27/25 02:29 Completed CBC w/Auto Diff [Complete Blood Count Auto Diff] Stat Lab 01/27/25 01:54 Completed CMP [Comprehensive Metabolic Panel] Stat Lab 01/27/25 01:54 Completed D-Dimer Stat Lab 01/27/25 01:54 Completed HIV Combo Stat Lab 01/27/25 01:54 Completed Hepatitis C Ab Qual. W/ RFX Stat Lab 01/27/25 01:54 Completed Lipase Stat Lab 01/27/25 01:54 Completed Troponin I Q3H Lab 01/27/25 01:54 Completed Troponin I Q3H Lab 01/27/25 04:45 Completed ECG Data Tracing #1: I reviewed this ECG and interpreted as documented below: Sinus tachycardia, rate of 102, some ST depressions noted in the precordial leads ECG initial impression date: 01/27/25 ECG initial impression time: 01:49 HEART Score History (anamnesis): Moderately suspicious ECG: Significant ST-deviation Age: >65 years Risk factors: Atherosclerosis history Troponin: </= normal limit HEART Score: 7 Medical Decision Narrative: 74-year-old male with history of hyperlipidemia coronary artery disease status post stents and CABG presents for several days of worsening cough and shortness of breath, chest pain that woke him from sleep tonight. History was obtained via interactive discussion with patient, chart review. On arrival, patient is [afebrile, hemodynamically stable, satting appropriately, alert, oriented x4, GCS 15], moving all extremities spontaneously. Full physical exam performed and significant for no significant physical exam abnormality Differential includes but is not limited to ACS, PE, musculoskeletal pain, pneumonia, reflux, heart failure hypertensive emergency. Patient was given full dose aspirin, nitro, GI cocktail for symptomatic management and correction of underlying abnormalities. Workup initiated including CBC CMP troponin D-dimer EKG CT PE. On re-evaluation, patient reports complete resolution in pain. Laboratory workup independently interpreted by me and significant for positive D-dimer, minimal hypokalemia, negative initial troponin. Imaging independently interpreted by me and significant for 3.5 cm subpleural mass in the right middle lobe concerning for cavitary pneumonia versus neoplasm. Airspace consolidation in the left upper lobe suspicious for pneumonia.. See radiology read for full review of final results. Patient was initiated on ceftriaxone and azithromycin for treatment of community-acquired pneumonia. Second troponin returns undetectably low. Patient does have a significant elevated heart score, but his presentation may be explained by pneumonia. I talked with him about being admitted for pneumonia and cardiac workup but patient prefers to go home. I explained that he had some abnormalities on his EKG and that I was concerned and recommended he be evaluated by cardiology. Patient declined. Patient was given a prescription for Levaquin for treatment of pneumonia and encouraged to follow-up with his PCP for further workup of his lung mass as well as with cardiology. Patient was discharged in stable condition with return precautions. Procedures Risk/Benefits of Procedure(s) Were Explained: Yes Critical Care Critical Care Time Critical Care Time: No
[2025-01-27] MEDS: BELLADONNA ALKALOIDS 60 ML ML PO (02:05)
[2025-01-27] MEDS: NITROGLYCERIN 0.4MG SL TABLET 0.4 MG SL (02:05)
[2025-01-27] MEDS: ASPIRIN 81MG CHEWABLE TABLET 324 MG PO (02:05)
--- OUTSIDE RECORDS SUMMARY | 2025-01-27 02:07 | XMS_ITS | Clinical Summary ---
Author Organization [facility] Address [address] [place] [id number] Care Team Providers Care Commercial Sales Consultant Name Role Phone Reji Villa MD Primary Care Provider [phone] Source Comments This information has been disclosed to you from confidential records protectedfrom disclosure by state law. You shall make no further disclosure of thisinformation without the specific, written, and informed release of theindividual to whom it pertains, or as otherwise permitted by law. A generalauthorization for the release of medical or other information is not sufficientfor the purposes of therelease of HIV test results or diagnoses. [id number] Health Social History Tobacco Use Types Packs/Day Years Used Date Smoking Tobacco: Never Assessed Sex and Gender Information Value Date Recorded Sex Assigned at Not on file Legal Sex Male 8:07 AM EDT Gender Identity Not on file Sexual Orientation Not on file Plan of Treatment Not on file Insurance [employer] Care Teams Commercial Sales Consultant Relationship Specialty Start Date End Date Reji Villa MD [address] [place] [address] PCP - General Internal Medicine 04/12/21
--- OUTSIDE RECORDS SUMMARY | 2025-01-27 02:07 | XMS_ITS | Encounter Summary ---
Author Organization [facility] Address [address] [id number] Care Team Providers Care Refuge Manager Name Role Phone Unavailable Primary Care Provider Unavailabl e Reason for Referral * Consultation (Routine) - Authorized Specialty Diagnoses / Procedures Referred By Contac t Referred To Contact Otolaryngology Diagnoses Basal cell carcinoma (BCC) of skin of lip Leigh Duron MD [address] [place] [address] Phone: tel: fax: Deng Johnson MD [address] [facility] [address] [place] [phone] Phone: tel: fax: Referral ID Status Reason Start Date Expiration Date Visits Requested Visits Authorized [id number] Authorized Specialty Services Required 12/11/2023 06/11/2025 1 1 Encounter Details Date Type Department Care Team (Late st Contact Info) Description 12/11/2023 Community Orders Community Practice [address] [place] [address] Leigh Duron MD [address] [place] [address] Basal cell carcinoma (BCC) of skin of lip (Primary Dx) Social History Tobacco Use Types Packs/Day Years Used Date Smoking Tobacco: Every Day Alcohol Use Standard Drinks/Week Comments Yes 0 (1 standard drink = 0.6 oz pur e alcohol) Sex and Gender Information Value Date Recorded Sex Assigned at Not on file Legal Sex Male 7:37 PM EDT Gender Identity Not on file Sexual Orientation Not on file documented as of this encounter Plan of Treatment Scheduled Referrals Name Type Priority Associated Diagnoses Order Schedule Ambulatory Referral to ENT Outpatient Referral Routine Basal cell carcinoma (BCC) of skin of lip 1 Occurrences starting 12/11/2023 until 06/12/2025 documented as of this encounter Visit Diagnoses Diagnosis Basal cell carcinoma (BCC) of skin of lip- Primary documented in this encounter
--- OUTSIDE RECORDS SUMMARY | 2025-01-27 02:07 | XMS_ITS | Clinical Summary ---
Author Organization [facility] Address [address] [place], [place] [address] Phone Care Team Providers Care Energy Attorney Name Role Phone Joe Tucker MD Unavailable [phone] Gladys Osuna RN Unavailable Unavailable Allergies Active Allergy Reactions Criticality Noted Date Comments Methadone Nausea And Vomiting, Other (See Comments) 12/27/2008 Morphine Nausea And Vomiting,Nausea Only 12/2008 Penicillin Hives Medium 03/23/2023 Penicillins Anaphylaxis High 12/27/2023 Trazodone Nausea And Vomiting, Other (See Comments) 12/27/2008 Medications amLODIPine (NORVASC) 5 mg Oral Tablet Take 15 mg by mouth daily. Active atorvastatin (LIPITOR) 80 mg Oral Tablet Take 80 mg by mouth daily. Active clopidogreL (PLAVIX) 75 mg Oral Tablet Take 75 mg by mouth daily. Active FLUoxetine (PROZAC) 20 mg Oral Capsule Take 40 mg by mouth daily. Active lisinopriL (PRINIVIL;ZESTR IL) 20 mg Oral Tablet tablet Take 10 mg by mouth 2 times daily. Active metoprolol (LOPRESSOR) 25 mg Oral Tablet Take 25 mg by mouth 2 times daily. Active omeprazole (PRILOSEC) 20 mg Oral Capsule, Delayed Release(E.C.) Take 20 mg by mouth every morning (before breakfast). Active sildenafiL (VIAGRA) 100 mg Oral Tablet Take 100 mg by mouth as needed for Erectile Dysfunction. Active tamsulosin (FLOMAX) 0.4 mg Oral Capsule Take 0.4 mg by mouth nightly. 12/28/2023 Active I-KVNG/OCUVITE Oral Tablet Take 1 Tablet by mouth daily. Active vismodegib 150 mg Oral CapsuleIndicati ons:Basal cell carcinoma of skin of nose Take 1 Capsule by mouth daily. 30 Capsule 2 09/11/2024 Active Active Problems Patient Care Coordination No te Formatting of this note migh t be different from the original. Care gap audit completed by Mary Deutsch RN on 12/09/2020. 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 Exposure to hazardous material 12/27/2023 Hypertension, essential 12/27/2023 Hyperlipemia 12/27/2023 Other insomnia 12/27/2023 Carotid artery stenosis 12/27/2023 Polyp of colon 12/27/2023 Prolonged posttraumatic stress disorder 12/27/19 24 Encounters Date Type Department Care Team Description 01/17/2025 Telephone [facility] [place] [address] Joe Tucker MD Information Only (02/07/25 ) 01/08/2025 [facility]phone [facility] [place] [address] Joe Tucker MD Other (Asking if appt scheduled ) 12/31/2024 [facility]phone [place] [address] Joe Tucker MD Information Only (pt appts ) 11/11/2024 Telephone [facility] [place] [phone] Joe Tucker MD Paperwork/forms ([place] Author[place] Validity Dates uploaded to pt.'s chart) 10/29/2024 Telephone [facility] [place] [phone] Joe Tucker MD Reschedule (lab and MD ) 10/28/2024 Orders Only [facility] [place] [phone] Joe Tucker MD Basal cell carcinoma of skin of nose (Primary Dx); Basal cell carcinoma (BCC) of skin of upper extremity including shoulder, unspecified laterality from Last 3 Months Immunizations Immunization Administration Dates Next Due Influenza Vaccine Quadrivalent PF 06/18/2019 Pneumococcal Conjugate Vaccine 13 Valent 018 Pneumococcal Polysaccharide 23 Valent 10/04/2022 ,06/18/2019 Td, Unspecified Formulation 07/24/1999, 1 Tdap 01/03/2024 Zoster Recombinant 11/15/2021 Social History Tobacco Use Types Packs/Day Years Used Date Smoking Tobacco: Former Cigarettes 1.1 65.5 S tarted: 1960 Cigars Smokeless Tobacco: Never Tobacco Cessation:Counseling Given: Not Answered Alcohol Use Standard Drinks/Week Comments Not Currently 0 (1 standard drink = 0.6 oz pur e alcohol) PHQ-2 Answer Date Recorded PHQ-2 Total Score 0 2024 Sex and Gender Information Value Date Recorded Sex Assigned at Not on file Legal Sex Male 7:11 AM EDT Gender Identity Not on file Sexual Orientation Not on file Obstetrics History Last Filed Vital Signs Vital Sign Reading Time Taken Comments Blood Pressure 141/84 07/08/2024 10:53 AM EST Pulse 50 07/08/2024 10:53 AM EST Temperature 36.5 C (97.7 F) 07/08/2024 10:53 AM EST Respiratory Rate 14 07/08/2024 10:53 AM EST Oxygen Saturation 99% 07/08/2024 10:53 AM EST Inhaled Oxygen Concentration - - Weight 66.4 kg (146 lb 6.4 oz) 07/08/2024 10:53 AM EST Height 172.7 cm (5' 8 ) 07/08/2024 10:53 AM EST Body Mass Index 22.26 07/08/2024 10:53 AM EST Plan of Treatment Upcoming Encounters Date Type Department Care Team (Late st Contact Info) Description 02/07/2025 3:15 PM EDT Appointment [place] [address] 02/07/2025 3:30 PM EDT Appointment [facility] [place] [address] Joe Tucker MD [address] [place] [phone] Health Maintenance Due Date Last Done Comments Annual Wellness Exam 1953 Hepatitis C Screening 1969 Cologuard 02/15/1996 Colon Cancer Screening 02/15/1996 Colonoscopy 02/15/1996 FIT 02/15/1996 Sigmoidoscopy 02/15/1996 Virtual Colonography 02/15/1996 AAA Screening 02/15/2016 Zoster (2 of 2) 01/10/2022 11/15/2021 COVID-19 Vaccine (3 - 2023-2 5 season) 2024 12/05/2020, 11/03/2020 Influenza Vaccine (#1) 2025 06/18/2019 DTaP/TDaP/Td (2 - Td or Tdap) 01/02/2034, 07/24/1999, 07/24/1990 Pneumococcal Vaccine 50+ Completed 023, 06/18/2019, 12/22/2017 Hepatitis B Vaccine Aged Out No longe r eligible based on patient's age to complete this topic Meningococcal B Vaccine Aged Out No l onger eligible based on patient's age to complete this topic Goals Goal Patient Goal Type Associated Problems Recent Progress Patient-Stated? Author Blood Pressure < 140/90 Blood Pressure 141/84(2023 10:53 AM EST) No Sonal Lynn Maintain a healthy diet, exercise regularly and maintain an ideal body weight General No Sonal Lynn Stay Tobacco Free Lifestyle No Sonal Lynn Insurance [facility] [employer] MEDICARE PPO [place] Member Subscriber Plan / Payer (Ef fective 2022-Present) Name:David Renae Relation to Subscriber:Self Name:David Renae Payer ID:[id number] (NAIC) Type:Not on file Address: [address] [facility] MEDICARE PPO [place] Member Subscriber Plan / Payer (Ef fective 2022-Present) Name:David Renae Relation to Subscriber:Self Name:David Renae Payer ID:[id number] (NAIC) Type:Not on file Address: [place] [phone] Care Teams Energy Attorney Relationship Specialty Start Date End Date Joe Tucker MD [address] [place] [address] Internal Medicine-Hematology and Oncology 04/08/24 Gladys Osuna, RN Registered Nurse 09/09/24
--- OUTSIDE RECORDS SUMMARY | 2025-01-27 02:07 | XMS_ITS | Encounter Summary ---
Author Organization [place] [address] Care Team Providers Care Dressmaker Or Tailor Name Role Phone Joe Tucker MD Unavailable [phone] Gladys Osuna RN Unavailable Unavailable Reason for Visit * Reason Onset Date Comments Other 01/08/2025 Asking if appt s cheduled Encounter Details Date Type Department Care Team (Late st Contact Info) Description 01/08/2025 Telephone [facility] Care Medical Oncology [place] [phone] Joe Tucker MD [address] [place], [place] [id number] Other (Asking if appt scheduled ) Social History Tobacco Use Types Packs/Day Years Used Date Smoking Tobacco: Former Cigarettes 1.1 65.5 S tarted: 1960 Cigars Smokeless Tobacco: Never Alcohol Use Standard Drinks/Week Comments Not Currently 0 (1 standard drink = 0.6 oz pur e alcohol) PHQ-2 Answer Date Recorded PHQ-2 Total Score 0 2024 Sex and Gender Information Value Date Recorded Sex Assigned at Not on file Legal Sex Male 7:11 AM EDT Gender Identity Not on file Sexual Orientation Not on file documented as of this encounter Miscellaneous Notes * Telephone Encounter - Kate Martin - 01/13/2025 8:05 AM EDT pt scheduled for MD bob follow up 02/07 * Telephone Encounter - Fernando Bustos NA - 01/08/2025 3:11 PM EDT Called, VM full. Called brother, LVM. Need schedule labs & Amauri's 1st available. * Telephone Encounter - Gladys Osuna, RN - 01/08/2025 2:58 PM EDT Can we reach out to patient to help get him scheduled with Dr. Tucker? First available. * Telephone Encounter - Cele Matthew, Clerical Staff - 01/08/2025 1:12 PM EDT Reason for call: Pilar at [facility] called to find out if patient has called to reschedule. Advised no follow up scheduled at this time. Pilar advised the [facility] has sent a letter to patient for him to call us to get scheduled. Preferred call back number:[phone] *Fyi documented in this encounter Plan of Treatment Upcoming Encounters Date Type Department Care Team (Late st Contact Info) Description 02/07/2025 3:15 PM EDT Appointment [place] [address] 02/07/2025 3:30 PM EDT [facility]ointment [facility] [place] [address] Joe Tucker MD [address] [place] [address] documented as of this encounter Goals Goal Patient Goal Type Associated Problems Recent Progress Patient-Stated? Author Blood Pressure < 140/90 Blood Pressure 141/84(2023 10:53 AM EST) No Sonal Lynn Maintain a healthy diet, exercise regularly and maintain an ideal body weight General No Sonal Lynn Stay Tobacco Free Lifestyle Sonal Herring documented as of this encounter Visit Diagnoses Not on filedocumented in this encounter Care Teams Dressmaker Or Tailor Relationship Specialty Start Date End Date Joe Tucker MD [address] [place] [address] Internal Medicine-Hematology and Oncology 04/08/24 Gladys Osuna, RN Registered Nurse 09/09/24 documented as of this encounter
--- OUTSIDE RECORDS SUMMARY | 2025-01-27 02:07 | XMS_ITS | Encounter Summary ---
Author Organization [place] [address] Care Team Providers Care Analysis Consultant Name Role Phone Joe Tucker MD Unavailable [phone] Gladys Osuna RN Unavailable Unavailable Reason for Visit * Reason Onset Date Comments Information Only 12/31/2024 pt appts Encounter Details Date Type Department Care Team (Late st Contact Info) Description 12/31/2024 Telephone Cancer Care Medical Oncology [place] [phone] Joe Tucker MD [address] [place], [place] [phone] Information Only (pt appts ) Social History Tobacco Use Types Packs/Day [...] encounter Miscellaneous Notes * Telephone Encounter - Suzette Ortez, Clerical Staff - 12/31/2024 3:17 PM EDT [facility] for call[facility]. No further needs. documented in this encounter Plan of Treatment Upcoming Encounters Date Type Department Care Team (Late st Contact Info) Description 02/07/2025 3:15 PM EDT Appointment [facility] [place], [place] [phone] 02/07/2025 3:30 PM EDT Appointment [facility] [place], [place] [phone] Joe Tucker MD [address] [place], [place] [phone] documented as of this encounter Goals Goal Patient Goal Type Associated Problems Recent Progress Patient-Stated? Author Blood Pressure < 140/90 Blood Pressure 141/84(2023 10:53 AM EST) No Sonal Lynn Maintain a healthy diet, exercise regularly and maintain an ideal body weight General No Sonal Lynn Stay Tobacco Free Lifestyle No Sonal Lynn documented as of this encounter Visit Diagnoses Not on filedocumented in this encounter Care Teams Analysis Consultant Relationship Specialty Start Date End Date Joe Tucker MD [address] [place] [address] Internal Medicine-Hematology and Oncology 04/08/24 Gladys Osuna, RN Registered Nurse 09/09/24 documented as of this encounter
--- OUTSIDE RECORDS SUMMARY | 2025-01-27 02:07 | XMS_ITS | Encounter Summary ---
Author Organization [place] [address] Care Team Providers Care Cross Roller Name Role Phone Joe Tucker MD Unavailable [phone] Gladys Osuna RN Unavailable Unavailable Reason for Visit * Reason Onset Date Comments Information Only 01/17/2025 02/07/25 Encounter Details Date Type Department Care Team (Late Contact Info) Description 01/17/2025 Telephone Cancer Care Medical Oncology [place] [phone] Joe Tucker MD [address] [place] [phone] Information Only (02/07/25 ) Social History Tobacco Use Types Packs/Day [...] Encounter - Suzette Ortez, Clerical Staff - 01/17/2025 10:21 AM EDT [facility] for call[facility] of pt's next clinic appt. No further needs. documented in this encounter Plan of Treatment Upcoming Encounters Date Type Department Care Team (Late st Contact Info) Description 02/07/2025 3:15 PM EDT Appointment [facility] [place] [address] 02/07/2025 3:30 PM EDT Appointment [facility] [place] [address] Joe Tucker MD [address] [facility] [place] [address] documented as of this encounter Goals Goal [...] on filedocumented in this encounter Care Teams Cross Roller Relationship Specialty Start Date End Date Joe Tucker MD [address] [facility] [place] [address] Internal Medicine-Hematology and Oncology 04/08/24 Gladys Osuna, RN Registered Nurse 09/09/24 documented as of this encounter
--- OUTSIDE RECORDS SUMMARY | 2025-01-27 02:07 | XMS_ITS | Clinical Summary ---
Author Organization [facility] Address [address] [place] [address] Care Team Providers Care Drop Forger Helper Name Role Phone Unavailable Primary Care Provider Unavailabl e Family History Medical History Relation Name Comments Lymphoma Brother COPD Father COPD Mother COPD Sibling Relation Name Status Comments Brother Father Mother Sibling Social History Tobacco Use Types Packs/Day Years Used Date Smoking Tobacco: Every Day Alcohol Use Standard Drinks/Week Comments Yes 0 (1 standard drink = 0.6 oz pur e alcohol) Sex and Gender Information Value Date Recorded Sex Assigned at Not on file Legal Sex Male 7:37 PM EDT Gender Identity Not on file Sexual Orientation Not on file Last Filed Vital Signs Vital Sign Reading Time Taken Comments Blood Pressure 116/68 09/12/2019 12:35 PM EST Pulse 50 09/12/2019 12:35 PM EST Temperature - - Respiratory Rate - - Oxygen Saturation - - Inhaled Oxygen Concentration - - Weight 65 kg (143 lb 4.8 oz) 09/12/2019 12:35 PM EST Height 172.7 cm (5' 8 ) 09/12/2019 12:35 PM EST Body Mass Index 21.79 09/12/2019 12:35 PM EST Plan of Treatment Health Maintenance Due Date Last Done Comments [facility]-Depression Screening 1950 [facility]-Hepatitis C Screening 1950 [facility]-Medicare Annual Wellness (AWV) 1950 [facility]-Infant/Child/Adol SDOH Screenings 1950 [facility]- SDOH Screenings 1969 [facility]-Adult SDOH Screenings 1969 [facility]-DTaP,Tdap,and Td Vaccine s (1 - Tdap) 1970 CT Colonography 02/15/1996 Colonoscopy 02/15/1996 [facility]-DNA 02/15/1996 FIT 02/15/1996 FOBT 02/15/1996 Sigmoidoscopy 02/15/1996 [facility]-Colorectal Cancer Screening 02/15/1996 [facility]-Zoster Vaccines (1 of 2) 2001 [facility]-Pneumococcal Vaccine: 50 + Years (2 of 2 - PCV) 10/05/2023 10/04/2022, 06/18/2019 [id number] Vaccine (3 - season) 2024 12/05/2020, 11/03/2020 [facility]-Influenza Vaccine (#1) 2025 06/18/2019 [facility]-RSV Vaccine: 60+ Years o r (1 - 1-dose 75+ series) 2026 HPV Vaccines Aged Out No longer eligi ble based on patient's age to complete this topic [facility]-HIB Vaccines Aged Out No longer e ligible based on patient's age to complete this topic [facility]-Hepatitis A Vaccines Aged Out No longer eligible based on patient's age to complete this topic [facility]-IPV Vaccines Aged Out No longer e ligible based on patient's age to complete this topic [facility]-Rotavirus Vaccines Aged Out No lo nger eligible based on patient's age to complete this topic Insurance [employer]ICARE
[2025-01-27 02:16] LABS: Hematocrit 41.6 % (42.0-52.0); Hemoglobin 14.5 g/dL (14.1-18.0); Immature Granulocytes % 0.2 %; Mean Corpuscular HGB Conc 34.9 g/dL (31.8-35.4); Mean Corpuscular Hemoglobin 30.6 pg (27.0-31.2); Mean Corpuscular Volume 87.8 fl (80-94); Nucleated Red Blood Cells % 0 %; Platelet Count 177 K/mm3 (142-424); Red Blood Count 4.74 M/mm3 (4.60-6.20); Red Cell Distribution Width-SD 43.6 fL; White Blood Count 8.8 K/mm3 (4.8-10.8)
--- NOTE | 2025-01-27 02:29 | CT_ITS ---
PROCEDURE INFORMATION: Exam: CTA Chest With Contrast Exam date and time: 01/27/2025 2:45 AM Age: 74 years old Clinical indication: Pain; Shortness of breath; Left-sided; Additional info: Cp, SORobles TECHNIQUE: Imaging protocol: Computed tomographic angiography of the chest with contrast. Exam focused on the arteries. 3D rendering (Not supervised by radiologist): MIP and/or 3D reconstructed images were created by the technologist. Radiation optimization: All CT scans at this facility use at least one of these dose optimization techniques: automated exposure control; mA and/or kV adjustment per patient size (includes targeted exams where dose is matched to clinical indication); or iterative reconstruction. Contrast material: ISOUVE 370; Contrast volume: 70 ml; Contrast route: INTRAVENOUS (IV); COMPARISON: CR XR CHEST 2V 06/17/2019 1:47 PM FINDINGS: Pulmonary arteries: Normal. No pulmonary emboli. Aorta: Mild calcification of the aorta. Lungs: 3.5 cm subpleural mass in the right middle lobe with small foci of central cavitation. Moderate centrilobular emphysema. Mild airspace consolidation in the inferior left upper lobe. Pleural spaces: Unremarkable. No pneumothorax. No pleural effusion. Heart: Unremarkable. No cardiomegaly. No pericardial effusion. Coronary arteries: Moderate calcification of the coronary arteries. Lymph nodes: Calcified right hilar lymph nodes. Bones/joints: Unremarkable. No acute fracture. Soft tissues: Unremarkable. IMPRESSION: 1. 3.5 cm subpleural mass in the right middle lobe with small foci of central cavitation. Suspicious for cavitary pneumonia versus neoplasm. Short interval follow-up imaging recommended to confirm resolution. 2. Mild airspace consolidation in the inferior left upper lobe. Suspicious for mild pneumonia. 3. Moderate centrilobular emphysema. COMMENTS: The presence of pulmonary emphysema on CT is an independent risk factor for lung cancer. In the absence of a history or active diagnosis of lung cancer, it is recommended that this patient with emphysema be evaluated for enrollment in a low dose CT lung cancer screening program.
[2025-01-27 03:01] LABS: Alanine Aminotransferase 13 U/L (12-78); Albumin Level 3.8 g/dl (3.5-5.0); Albumin/Globulin Ratio 1.0 (1.1-1.8); Alkaline Phosphatase 112 U/L (38-126); Anion Gap 12.2 mEq/L (5-15); Aspartate Amino Transferase 23 U/L (17-59); Bilirubin,Total 0.8 mg/dl (0.2-1.3); Blood Urea Nitrogen 17 mg/dl (9-20); Calcium 8.7 mg/dl (8.4-10.2); Carbon Dioxide 28 mmol/L (22.0-30.0); Chloride 102 mmol/L (98-107); Creatinine Clearance Estimated 58 mL/min (50-200); Creatinine,Serum 0.70 mg/dl (0.66-1.25); Estimated Glomerular Filt Rate 111 ml/min (>60); GFR (African American) 134 ML/MIN (>60); Globulin 3.7 g/dL (1.3-3.2); Glucose 107 mg/dl (74-100); Lipase 32 U/L (23-300); Potassium 3.2 mmoL/L (3.5-5.1); Sodium 139 mmol/L (136-145); Total Protein,Serum 7.5 g/dl (6.3-8.2)
[2025-01-27 03:17] LABS: Troponin I < 0.01 ng/ml (0.00-0.034)
[2025-01-27 03:20] LABS: D-Dimer 0.90 ug/mL (0.0-0.5)
[2025-01-27 03:47] LABS: Hepatitis C Ab Qual. W/ RFX NEGATIVE (Negative)
[2025-01-27] MEDS: CEFTRIAXONE 1 GM 1 GM in 0.9 % SODIUM CHLORIDE 50 ML IV (04:19)
[2025-01-27] MEDS: AZITHROMYCIN 500 MG in 0.9 % SODIUM CHLORIDE 250 ML 250 MG IV (04:40)
[2025-01-27 05:31] LABS: Troponin I < 0.01 ng/ml (0.00-0.034)
== END 2025-01-27 05:58 | disposition home or self-care (01) ==
PROVIDERS: Emergency Provider Emergency Medicine
DX: J18.9 Pneumonia, unspecified organism (principal); R07.9 Chest pain, unspecified; R00.0 Tachycardia, unspecified; R91.8 Other nonspecific abnormal finding of lung field; F17.210 Nicotine dependence, cigarettes, uncomplicated
CPT/HCPCS: 71275; 80053; 83690; 84484; 85025; 85378; 86803; 87389; 93005; 96365; 96375; 99285; J0456; J0696; J7050

== ENCOUNTER 2025-04-14 07:39 | Outpatient (CLI) | payer OTHER, SELFPAY ==
--- OUTSIDE RECORDS SUMMARY | 2025-02-13 11:06 | XMS_ITS | Encounter Summary ---
Author Organization [place] [address] Care Team Providers Care Public Health Physician Name Role Phone Joe Tucker MD Unavailable [phone] Gladys Osuna RN Unavailable Unavailable Reason for Referral * MRI/CAT Scan (Routine) - Closed Specialty Diagnoses / Procedures Referred By Contac t Referred To Contact Radiology Diagnoses Basal cell carcinoma of skin of nose Procedures CT CHEST WO CONTRAST Joe Tucker MD [address] [place] [address] [place] [address] Phone: tel: fax: [facility] [place] [address] Phone: tel: fax: Referral ID Status Reason Start Date Expiration Date Visits Re quested Visits Authorized [id number] Closed 02/07/2025 02/07/2026 1 1 Reason for Visit * Auth/Cert/Inpt (Routine) Specialty Diagnoses / Procedures Referred By Contac t Referred To Contact Diagnoses Basal cell carcinoma of skin of nose Referral ID Status Reason Start Date Expiration Date Visits Re quested Visits Authorized [id number] 1 1 Encounter Details Date Type Department Care Team (Latest Contact Info) Description 02/13/2025 11:06 AM EDT - 02/13/2025 11:59 PM EDT Hospital Encounter [facility] [address] [place] [address] Joe Tucker MD [address] [place] [address] [address] [facility]17 Basal cell carcinoma of skin of nose Discharge Disposition: Home or Self Care Social History Tobacco Use Types Packs/Day Years Used Date Smoking Tobacco: Former Cigarettes 1.1 65.7 S tarted: 1960 Cigars Smokeless Tobacco: Never [...] on file documented as of this encounter Medications at Time of Discharge amLODIPine (NORVASC) 5 mg Oral Tablet Take 15 mg by mouth daily. atorvastatin (LIPITOR) 80 mg Oral Tablet Take 80 mg by mouth daily. clopidogreL (PLAVIX) 75 mg Oral Tablet Take 75 mg by mouth daily. FLUoxetine (PROZAC) 20 mg Oral Capsule Take 40 mg by mouth daily. I-KVNG/OCUVITE Oral Tablet Take 1 Tablet by mouth daily. lisinopriL (PRINIVIL;ZESTRI L) 20 mg Oral Tablet tablet Take 10 mg by mouth 2 times daily. metoprolol (LOPRESSOR) 25 mg Oral Tablet Take 25 mg by mouth 2 times daily. omeprazole (PRILOSEC) 20 mg Oral Capsule, Delayed Release(E.C.) Take 20 mg by mouth every morning (before breakfast). sildenafiL (VIAGRA) 100 mg Oral Tablet Take 100 mg by mouth as needed for Erectile Dysfunction. tamsulosin (FLOMAX) 0.4 mg Oral Capsule Take 0.4 mg by mouth nightly. 12/28/2023 vismodegib 150 mg Oral CapsuleIndicatio ns:Basal cell carcinoma of skin of nose Take 1 Capsule by mouth daily. 30 Capsule 2 09/11/2024 02/25/2025 documented as of this encounter Discharge Disposition Disposition Code Departure Means Destination Home or Self Care documented in this encounter Plan of Treatment Upcoming Encounters Date Type Department Care Team (Late st Contact Info) Description 04/21/2025 7:00 PM EDT Appointment [facility] [place] [facility] [address] [place] [address] Kareem Montgomery MD [address] [place] [address] 04/22/2025 7:30 AM EDT Appointment [facility] [place] [address] Kareem Montgomery MD [address] [place] [address] 05/09/2025 10:00 AM EDT Appointment [place] [address] 05/09/2025 10:30 AM EDT Appointment [facility] Medical Oncology [place], [place] [phone] Joe Tucker MD [address] [place] [address] [place] [address] documented as of this encounter Goals Goal Patient Goal Type Associated Problems Recent Progress Patient-Stated? Author Blood Pressure < 140/90 Blood Pressure 105/61(2024 3:07 PM EDT) Sonal Herring Maintain a healthy diet, exercise regularly and maintain an ideal body weight General Sonal Herring Stay Tobacco Free Lifestyle Sonal Herring documented as of this encounter Procedures Procedure Name Priority Date/Time Associated Diagnosis Comments CT CHEST WO CONTRAST Routine 02/13/2025 11:28 AM EDT Basal cell carcinoma of skin of nose documented in this encounter Results * CT CHEST WO CONTRAST (02/13/2025 11:28 AM EDT) Anatomical Region Laterality Modality Chest Computed Tomogra phy 02/13/2025 11:2 8 AM EDT Impressions 02/13/2025 2:02 PM EDT 1. Irregular pulmonary mass in the right middle lobe measures up to 3.5 cm nonspecific without prior studies available for comparison but concerning for pulmonary malignancy. 2. Additional pulmonary nodule in the peripheral left lower lobe measures up to 7 mm, nonspecific. 3. No lymphadenopathy in the chest. CODE Lung Management: Recommend referral to the multidisciplinary nodule review board. Note: Radiology results need to be interpreted within a comprehensive clinical context. If you have questions about the radiology report, please contact the office of the ordering clinician. Narrative 02/13/2025 2:[address] CHEST WITHOUT CONTRAST, 02/13/2025 11:28 AM CLINICAL HISTORY: C44.311-Basal cell carcinoma of skin of [id number]-CM. COMPARISON: None. PROCEDURE COMMENTS: Multi-detector CT of the chest with multiplanar reconstructions per protocol. No contrast given. Dose 1 : CT DLP Total : 322.3 mGycm DLP Spiral Max : 322.3 mGycm Maximum CTDI Vol : 13.9 mGy SSDE : 19.738 mGy SSDE Diameter : 26.2 cm SSDE Source : [employer] FINDINGS: Mild emphysema. Diffuse mild bronchial wall thickening. Mild biapical scarring. Few scattered calcified granulomas. Irregular pulmonary mass in the right middle lobe measures up to 3.5 x 2.7 cm in maximal transverse dimension. Additional pulmonary nodule in the peripheral left lower lobe costophrenic sulcus region measures up to 7 mm. No pleural effusion. Heart and major vessels unremarkable. Postsurgical changes of CABG. No regional lymphadenopathy in the chest. Coronary artery calcification: Status post CABG Procedure Note Joe Salazar MD - 02/13/2025 CT CHEST WITHOUT CONTRAST, 02/13/2025 11:28 AM CLINICAL HISTORY: C44.311-Basal cell carcinoma of skin [id number]-CM. COMPARISON: None. PROCEDURE COMMENTS: Multi-detector CT of the chest with multiplanar reconstructions per protocol. No contrast given. Dose 1 : CT DLP Total : 322.3 mGycm DLP Spiral Max : 322.3 mGycm Maximum CTDI Vol : 13.9 mGy SSDE : 19.738 mGy SSDE Diameter : 26.2 cm SSDE Source : [employer] FINDINGS: Mild emphysema. Diffuse mild bronchial wall thickening. Mildbiapical scarring. Few scattered calcified granulomas. Irregular pulmonary mass inthe right middle lobe measures up to 3.5 x 2.7 cm in maximal transversedimension. Additional pulmonary nodule in the peripheral left lower lobecostophrenic sulcus region measures up to 7 mm. No pleural effusion. Heart and major vessels unremarkable. Postsurgical changes of CABG. Noregional lymphadenopathy in the chest. Coronary artery calcification: Status post CABG IMPRESSION: 1. Irregular pulmonary mass in the right middle lobe measures up to 3.5cm nonspecific without prior studies available for comparison but concerningfor pulmonary malignancy. 2. Additional pulmonary nodule in the peripheral left lower lobe measuresup to 7 mm, nonspecific. 3. No lymphadenopathy in the chest. CODE Lung Management: Recommend referral to the multidisciplinary nodulereview board. Note: Radiology results need to be interpreted within a comprehensiveclinical context. If you have questions about the radiology report, please contactthe office of the ordering clinician. us Joe uTcker MD IMG CT ORDERABLES Final Result documented in this encounter Visit Diagnoses Diagnosis Basal cell carcinoma of skin of nose Basal cell carcinoma of skin of other and unspecified parts of face documented in this encounter Care Teams Public Health Physician Relationship Specialty Start Date End Date Joe Tucker MD [address] [place] [address] [place] [address] Internal Medicine-Hematology and Oncology 04/08/24 Gladys Osuna, RN Registered Nurse 09/09/24 documented as of this encounter
--- OUTSIDE RECORDS SUMMARY | 2025-02-20 07:40 | XMS_ITS | Encounter Summary ---
Author Organization [place] [address] Care Team Providers Care Reverberatory Furnace Operator Name Role Phone Joe Tucker MD Unavailable [phone] Gladys Osuna RN Unavailable Unavailable Encounter Details Date Type Department Care Team (Late st Contact Info) Description 02/20/2025 7:40 AM EDT Tumor Board [facility] [place] [phone] Social History Tobacco Use Types Packs/Day Years [...] on file documented as of this encounter Progress Notes * Latesha Cooper RN - 02/20/2025 7:40 AM EDT Tumor Board Documentation This patient may receive this note before their Care Team has the ability to review the contents with them. If the Care Team has not yet contacted the patient regarding the note, the Care Team will be reaching out to the patient shortly. Presented by: Dr. Tucker Date: 02/20/2025 In attendance: medical oncology, radiation oncology, surgical oncology, pathology, navigation, radiology, psych social worker, cancer registry. Presentation: Prospective Discussions include but are not limited to the following: Background: Irregular pulmonary mass in the right middle lobe measures up to 3.5 cm nonspecific without prior studies available for comparison but concerning for pulmonary malignancy. Additional pulmonary nodule in the peripheral left lower lobe measures up to 7 mm, nonspecific. Previous treatments: none. Additionally, we reviewed previous medical and familial history, history of present illness, and recent lab results along with all available histopathologic and imaging studies. The tumor board considered available treatment options which could include: Need biopsy of lesion, has grown since 2022. CT ion/EBUS PET scan, see TS. Clinical Trial Status: Not discussed Genetics Discussed: No National site-specific guidelines were discussed with respect to the case. The Oncology Care Team at [facility] is working hard to provide the best cancer care in [facility]. As part of our program's commitment to excellence, the following case was recently presented at Tumor Board Conference. Tumor Board Conference is a meeting of doctors and other healthcare professionals from multiple specialties who discuss treatment options for patients. Some cases are presented prior to the patient being seen by a physician. Final decisions in the plan of care are made by the treating physician(s) in conversation with the patient. The responsibility for follow up of these recommendations is that of the treating physicians(s). documented in this encounter Plan of Treatment Upcoming Encounters Date Type Department Care Team (Late st Contact Info) Description 04/21/2025 7:00 PM EDT Appointment [place] [address] [place] [address] Kareem Montgomery MD [address] [place] [address] 04/22/2025 7:30 AM EDT Appointment [facility] [place] [address] Kareem Montgomery MD [address] [place] [address] 05/09/2025 10:00 AM EDT Appointment [place] [address] 05/09/2025 10:30 AM EDT Appointment [facility] [place] [address] Joe Tucker MD [address] [facility] [place] [address] documented as of this encounter Goals Goal Patient Goal Type Associated Problems Recent Progress Patient-Stated? Author Blood Pressure < 140/90 Blood Pressure 105/61(2024 3:07 PM EDT) No Sonal Lynn Maintain a healthy diet, exercise regularly and maintain an ideal body weight General No Sonal Lynn Stay Tobacco Free Lifestyle No Sonal Lynn documented as of this encounter Visit Diagnoses Not on filedocumented in this encounter Orders Appointment Requests Count Last Ordered Date rst Ordered Date [facility] TUMOR BO[facility] 1 2025 documented in this encounter Care Teams Reverberatory Furnace Operator Relationship Specialty Start Date End Date Joe Tucker MD [address] [facility] [place] [address] Internal Medicine-Hematology and Oncology 04/08/24 Gladys Osuna, RN Registered Nurse 09/09/24 documented as of this encounter
--- OUTSIDE RECORDS SUMMARY | 2025-03-01 08:31 | XMS_ITS | Encounter Summary ---
Author [place] [address] Care Team Providers Care Disk Sharpener Name Role Phone Joe Tucker MD Unavailable [phone] Gladys Osuna RN Unavailable Unavailable Reason for Referral * MRI/CAT Scan (Urgent) - Authorized Specialty Diagnoses / Procedures Referred By Lexa t Referred To Contact Radiology Diagnoses Basal cell carcinoma of skin of nose Lung mass Procedures PET CT WHOLE BODY Joe Tucker MD [address] [place] [address] [place] [address] Phone: tel: fax: [place] [address] Phone: tel: fax: Referral ID Status Reason Start Date Expiration Date V isits Requested Visits Authorized [id number] Authorized 02/25/2025 02/25/2026 5 5 Reason for Visit * Auth/Cert/Inpt (Routine) Specialty Diagnoses / Procedures Referred By Contac t Referred To Contact Diagnoses Basal cell carcinoma of skin of nose Other nonspecific abnormal finding of lung field Referral ID Status Reason Start Date Expiration Date Visits Re quested Visits Authorized [id number] 1 Encounter Details Date Type Department Care Team (Latest Contact Info) Description 03/01/2025 8:31 AM EDT - 03/01/2025 11:59 PM [place] [address] Joe Tucker MD [address] [place] [address] [place] [address] Blood tests prior to treatment or procedure (Primary Dx); Basal cell carcinoma of skin of nose; Lung mass Discharge Disposition: Home or Self Care Social [...] Take 1 Tablet by mouth daily. lisinopriL (PRINIVIL;ZESTRIL ) 20 mg Oral Tablet tablet Take 10 [...] mouth nightly. 12/28/2023 vismodegib 150 mg Oral CapsuleIndication s:Basal cell carcinoma of skin of nose Take 1 Capsule by mouth daily. 30 Capsule 2 02/25/2025 documented as of this encounter Discharge Disposition Disposition Code Departure Means Destination Home or Self Care documented in this encounter Plan of Treatment Upcoming Encounters Date Type Department Care Team (Late st Contact Info) Description 04/21/2025 7:00 PM EDT Appointment [facility] [address] [place] [address] Kareem Montgomery MD [address] [place] [address] 04/22/2025 7:30 AM EDT Appointment [facility] [place] [address] Kareem Montgomery MD [address] [place] [address] 05/09/2025 10:00 AM EDT Appointment [place] [address] 05/09/2025 10:30 AM EDT [facility]ointment [facility] [place], [place] [id number] Joe Tucker MD [address] [place] [address] [place] [address] documented as of this encounter Goals Goal Patient Goal Type Associated Problems Recent Progress Patient-Stated? Author Blood Pressure < 140/90 Blood Pressure 105/61(2024 3:07 PM EDT) Sonal Herring Maintain a healthy diet, exercise regularly and maintain an ideal body weight General Sonal Herring Stay Tobacco Free Lifestyle Sonal Herring documented as of this encounter Procedures Procedure Name Priority Date/Time Associated Diagnosis Comments PET CT WHOLE BODY MARIE 03/01/2025 10: 48 AM EDT Basal cell carcinoma of skin of nose Lung mass GLUCOSE METER POC Routine 03/01/2025 8:4 5 AM EDT documented in this encounter Results * PET CT WHOLE BODY (03/01/2025 10:48 AM EDT) Anatomical Region Laterality Modality Positron Emissio n Tomography (PET) 03/01/2025 10:4 8 AM EDT Impressions 03/01/2025 1:50 PM EDT 1. Hypermetabolic 3.5 cm right middle lobe pulmonary mass is compatible with pulmonary malignancy. Primary pulmonary malignancy is favored. 2. Hypermetabolic inferior nasal/lip region ulceration is concordant with patient's known basal cell carcinoma. 3. Indeterminate FDG uptake involving the peripheral zones of the prostate gland. Primary prostate malignancy is not excluded. Recommend correlation with PSA. 4. No other evidence of hypermetabolic malignancy on this exam. - Note: Radiology results need to be interpreted within a comprehensive clinical context. If you have questions about the radiology report, please contact the office of the ordering clinician. Narrative 03/01/2025 1:[address] SKULL WHOLE BODY, 03/01/2025 10:48 AM CLINICAL HISTORY: C44.311-Basal cell carcinoma of skin of qqbw-MYI-24-CM R91.8-Other nonspecific abnormal finding of lung oaadn-OUM-77-CM. 75-year-old male with basal cell carcinoma of the nose/lip. Recent chest CT demonstrated a 3.5 cm irregular pulmonary mass within the right middle lobe. Patient presents for whole-body PET/CT imaging.; PET/CT 02/23/2022 COMPARISON: CT chest without IV contrast 02/13/2025 PROCEDURE COMMENTS: 14.5 mCi 18F-fluorodeoxyglucose (FDG) was administered I.V. Serum blood glucose at the time of the injection was 98 mg/dL. Uptake time was approximately 64 minutes. Scanning performed from the skull vertex to the feet. As an integrated part of the study, noncontrast CT scanning performed for attenuation correction and localization purposes. Dose 1 : CT DLP Total : 566.17 mGycm DLP Spiral Max : 553.85 mGycm Maximum CTDI Vol : 3.12 mGy FINDINGS: Normal distribution of physiologic background activity was present including gastrointestinal, genitourinary, cardiovascular, neurologic systems. Index activity in the right lobe of the liver was 2.1 SUV max. Head and Neck: There is focal FDG uptake involving the inferior nasal/lip region with SUV max of 5.2. There is associated ulceration (for example axial image 98). This is concordant with patient's known basal cell carcinoma. Otherwise, no suspicious hypermetabolic foci. Chest: The irregular 3.5 cm right middle lobe parenchymal mass is hypermetabolic with SUV max of 6.1. This is compatible with pulmonary malignancy. Primary pulmonary malignancy is favored. Background emphysema. No other suspicious hypermetabolic foci. Specifically, no hypermetabolic mediastinal or hilar lymph nodes. Abdomen and pelvis: There is indeterminate FDG uptake involving the peripheral zones of the prostate gland with SUV max of 6.8. Primary prostate malignancy is not excluded. Recommend correlation with PSA. Otherwise, no suspicious hypermetabolic foci. Musculoskeletal: No suspicious hypermetabolic foci. Notable CT findings: No acute findings within the imaged volume. 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 Postoperative changes in median sternotomy. Procedure Note Feliberto Leal MD - 03/01/[address] SKULL WHOLE BODY, 03/01/2025 10:48 AM CLINICAL HISTORY: C44.311-Basal cell carcinoma of skin vxkjhd-VNW-88-CM R91.8-Other nonspecific abnormal finding of lung vedpm-UJJ-25-CM. 75-year-old male with basal cell carcinoma of the nose/lip. Recent chestCT demonstrated a 3.5 cm irregular pulmonary mass within the right middlelobe. Patient presents for whole-body PET/CT imaging.; PET/CT 02/23/2022 COMPARISON: CT chest without IV contrast 02/13/2025 PROCEDURE COMMENTS: 14.5 mCi 18F-fluorodeoxyglucose (FDG) was administeredI.V. Serum blood glucose at the time of the injection was 98 mg/dL. Uptake timewas approximately 64 minutes. Scanning performed from the skull vertex to thefeet. As an integrated part of the study, noncontrast CT scanning performedfor attenuation correction and localization purposes. Dose 1 : CT DLP Total : 566.17 mGycm DLP Spiral Max : 553.85 mGycm Maximum CTDI Vol : 3.12 mGy FINDINGS: Normal distribution of physiologic background activity waspresent including gastrointestinal, genitourinary, cardiovascular, neurologicsystems. Index activity in the right lobe of the liver was 2.1 SUV max. Head and Neck: There is focal FDG uptake involving the inferior nasal/lipregion with SUV max of 5.2. There is associated ulceration (for example axialimage 98). This is concordant with patient's known basal cell carcinoma. Otherwise, no suspicious hypermetabolic foci. Chest: The irregular 3.5 cm right middle lobe parenchymal mass is hypermetabolic with SUV max of 6.1. This is compatible with pulmonary malignancy. Primary pulmonary malignancy is favored. Backgroundemphysema. No other suspicious hypermetabolic foci. Specifically, no hypermetabolic mediastinal or hilar lymph nodes. Abdomen and pelvis: There is indeterminate FDG uptake involving theperipheral zones of the prostate gland with SUV max of 6.8. Primary prostatemalignancy is not excluded. Recommend correlation with PSA. Otherwise, no suspicious hypermetabolic foci. Musculoskeletal: No suspicious hypermetabolic foci. Notable CT findings: No acute findings within the imaged volume. 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 Postoperative changes in median sternotomy. IMPRESSION: 1. Hypermetabolic 3.5 cm right middle lobe pulmonary mass is compatiblewith pulmonary malignancy. Primary pulmonary malignancy is favored. 2. Hypermetabolic inferior nasal/lip region ulceration is concordantwith patient's known basal cell carcinoma. 3. Indeterminate FDG uptake involving the peripheral zones of theprostate gland. Primary prostate malignancy is not excluded. Recommend correlationwith PSA. 4. No other evidence of hypermetabolic malignancy on this exam. - Note: Radiology results need to be interpreted within a comprehensiveclinical context. If you have questions about the radiology report, please contactthe office of the ordering clinician. us Joe Tucker MD IMG PET ORDERABLES Final Resul t * GLUCOSE METER POC (03/01/2025 8:45 AM EDT) Glucose Meter POC 98 70 - 100 mg/dL 03/01/2025 8:47 AM EDT [facility] Sample Type Capillary 03/01/2025 8:47 AM EDT [facility] Patient Status Non-Critical Patient 03/01/2025 8:47 AM EDT [facility] Blood BLOOD SPECIMEN / Unknown 03/01/2025 8:45 AM EDT 03/01/2025 8:47 AM EDT us Joe Tucker MD POINT OF CARE TEST ORDERABLES Final Result [facility] [address] [place], [place] [id number] documented in this encounter Visit Diagnoses Diagnosis Blood tests prior to treatment or procedure- Primary Pre-procedural laboratory examination Basal cell carcinoma of skin of nose Basal cell carcinoma of skin of other and unspecified parts of face Lung mass Swelling, mass, or lump in chest documented in this encounter Administered Medications Inactive Administered Medications - up to 1 most recent administrations Medication Order MAR Action Action Date Dose Rate Site fluorodeoxyglucose (FDG) injection 14.5 millicurie 14.5 millicurie, Intravenous, ONCE PRN, 1 dose, Starting on 03/01/25 at 0904, Until 03/01/25 at 0904, Radiography/Imaging, Radiology Procedure, Administration dose must be within 10% of the ordered dose for radiopharmaceutical medications., Radiology Given 03/01/2025 9:04 AM EDT 14.5 millicuries documented in this encounter Orders Medications Ordered That Mike ht Not Have Been Administered Count Last Ordered Date First Ordered Date fluorodeoxyglucose (FDG) inj ection 14.5 millicurie 1 03/01/2025 documented in this encounter Care Teams Disk Sharpener Relationship Specialty Start Date End Date Joe Tucker MD [address] [place] [address] [place], [place] [id number] Internal Medicine-Hematology and Oncology 04/08/24 Gladys Osuna, RN Registered Nurse 09/09/24 documented as of this encounter
--- NOTE | 2025-04-14 | CA_ITS ---
APPROVED REPORT EXAM: Comprehensive 2D, Doppler, and color-flow Echocardiogram Suspender Maker: Louisa Marlow RT(R) Ht: 5 ft 8 in Wt: 135lbs BSA: 1.73 BP: 165/87 mmHg Indications: shortness of breath, murmur, smoker, hx CABG, hypertension, hyperlipidemia, CAD 2D Dimensions LA Volume 34.40 mL LA Volume Index 19.88 mL/m2 (M/F) 16-34 EF AP4 61.30 % GL Strain -20.8 % M-Mode Dimensions RVDd 3.46 cm (0.9-2.6) LA Diam 3.87 cm (1.9-4.0) LVDd 4.99 cm (3.5-5.7) LVDs 3.74 cm (3.5-5.7) IVSd 0.85 cm (0.6-1.1) PWd 0.76 cm (0.6-1.1) EF (Teich) 49.40% FS 25.10% EDV (Teich) 117.70 mL ESV (Teich) 59.60 mL LV Diastology E Decel Time 273 (160-240 msec) E/A Ratio 0.7 Mitral Valve MV E Max Marcio. 60.0 (40-130 cm/s) MV A Velocity 84.0 (40-130 cm/s) E/A Ratio 0.72 MV PHT 80.0 ms Left Ventricle The left ventricle is normal size. Left ventricular systolic function is normal. The left ventricular ejection fraction is within the normal range. There is increased left ventricular wall thickness. There is normal LV segmental wall motion. Transmitral Doppler flow pattern suggests impaired LV relaxation. LVEF is 55% Right Ventricle The right ventricle is normal size. The right ventricular systolic function is normal. Atria The left atrium is mildly dilated. The right atrium is mildly dilated. There is no color Doppler evidence of interatrial shunt. Aortic Valve The aortic valve is mildly thickened. There is no hemodynamically significant aortic valvular stenosis. Trace aortic regurgitation is present. Mitral Valve The mitral valve is normal in structure. No evidence of mitral valve stenosis. Mild mitral regurgitation is present. Tricuspid Valve The tricuspid valve leaflets are thin and pliable. Trace tricuspid regurgitation. There is insufficient TR jet to estimate RVSP. Pulmonic Valve The pulmonary valve is grossly normal in structure. Trace pulmonic valve regurgitation is present. Great Vessels The aortic root is normal in size. IVC is normal in size and collapses >50% with inspiration. Pericardium There is no pericardial effusion. Other Information Study Quality: Fair Conclusion Normal biventricular systolic function. Mild biatrial dilation. Mild MR. Electronically signed by : Sravani Wild MD 04/14/2025 12:42:17
--- OUTSIDE RECORDS SUMMARY | 2025-04-14 07:43 | XMS_ITS | Clinical Summary ---
Author Organization [facility] Address [address] [place] [address] Care Team Providers Care News Camera Operator Name Role Phone Reji Villa MD Primary Care Provider [phone] Source Comments This information has been disclosed [...] therelease of HIV test results or diagnoses. [id number] Health Social History Tobacco Use Types Packs/Day Years Used Date Smoking Tobacco: Never Assessed Sex and Gender Information Value Date Recorded Sex Assigned at Not on file Legal Sex Male 8:07 AM EDT Gender Identity Not on file Sexual Orientation Not on file Plan of Treatment Not on file Insurance [employer] Care Teams News Camera Operator Relationship Specialty Start Date End Date Reji Villa MD [address] [place] [address] PCP - General Internal Medicine 04/12/21
--- OUTSIDE RECORDS SUMMARY | 2025-04-14 07:43 | XMS_ITS | Encounter Summary ---
Author Organization [place] [address] Care Team Providers Care Pump Technician Name Role Phone Joe Tucker MD Unavailable [phone] Gladys Osuna RN Unavailable Unavailable Reason for Referral * MRI/CAT Scan (Urgent) - Pending Review Specialty Diagnoses / Procedures Referred By Conttru t Referred To Contact Radiology Diagnoses Lung mass Procedures CT ION CHEST WO CONTRAST Kareem Montgomery MD [address] [place] [address] Phone: tel: fax: Referral ID Status Reason Start Date Expiration Date V isits Requested Visits Authorized [id number] Pending Review 04/11/2025 04/11/2026 1 1 Encounter Details Date Type Department Care Team (Late st Contact Info) Description 04/11/2025 Orders Only SEP Pulmonology [facility] [address] [facility] [address] [place] [address] Jasvir Bryant, DAMION Lung mass (Primary Dx) Social History Tobacco Use Types [...] as of this encounter Plan of Treatment Upcoming Encounters Date Type Department Care Team (Late st Contact Info) Description 04/21/2025 7:00 PM EDT Appointment [facility] [address] [place] [address] Kareem Montgomery MD [address] [place] [address] 04/22/2025 7:30 AM EDT Appointment [facility] [address] [place], [place] [phone] Kareem Montgomery MD [address] [place] [address] 05/09/2025 10:00 AM EDT Appointment [facility] [place], [place] [id number] 05/09/2025 10:30 AM EDT Appointment [facility] [place], [place] [id number] Joe Tucker MD [address] [place] [address] [address] [place], [place] [id number] Scheduled Orders Name Type Priority Associated Diagnoses Orde r Schedule CT ION CHEST WO CONTRAST Imaging MARIE Lung mass 1 Occurrences starting 04/11/2025 until 04/11/2026 documented as of this encounter Goals Goal Patient Goal Type Associated Problems Recent Progress Patient-Stated? Author Blood Pressure < 140/90 Blood Pressure 105/61(2024 3:07 PM EDT) Sonal Herring Maintain a healthy diet, exercise regularly and maintain an ideal body weight General No Sonal Lynn Stay Tobacco Free Lifestyle Sonal Herring documented as of this encounter Visit Diagnoses Diagnosis Lung mass- Primary Swelling, mass, or lump in chest documented in this encounter Care Teams Pump Technician Relationship Specialty Start Date End Date Joe Tucker MD [address] [place] [address] [place] [address] Internal Medicine-Hematology and Oncology 04/08/24 Gladys Osuna, RN Registered Nurse 09/09/24 documented as of this encounter
--- OUTSIDE RECORDS SUMMARY | 2025-04-14 07:43 | XMS_ITS | Encounter Summary ---
Author Organization [place] [address] Care Team Providers Care Felt Strip Finisher Name Role Phone Joe Tucker MD Unavailable [phone] Gladys Osuna RN Unavailable Unavailable Reason for Referral * Consultation (Emergency) - Pending Review Specialty Diagnoses / Procedures Referred By Contac t Referred To Contact Pulmonology Diagnoses Atherosclerosis of [place] coronary artery, unspecified whether angina present, unspecified whether [place] or transplanted heart Lung nodule Procedures MD OFFICE/OUTPATIENT NEW MODERATE MDM 45 MINUTES Joe Tucker MD [address] [place] [address] Phone: tel: fax: [facility] [place] [place] Pulmonology [address] [address] Phone: tel: fax: Referral ID Status Reason Start Date Expiration Date V isits Requested Visits Authorized [id number] Pending Review 04/03/2025 04/03/[address] Tucker, please schedule pt with Dr. Montgomery. Pt has nodule on lung that is active on PET scan. Dr. Tucker would like pt to schedule biopsy. Reason for Visit * Reason Onset Date Comments Results 03/13/2025 Encounter Details Date Type Department Care Team (Late st Contact Info) Description 03/13/2025 Results [facility]-Up [facility] [place] [address] Joe Tucker MD [address] [place] [address] WHOLE BODY Social History Tobacco Use Types Packs/Day Years [...] as of this encounter Progress Notes * Belinda Pyle - 03/26/2025 12:54 PM EDTSumdyllan: MAVIS Letter sent documented in this encounter Miscellaneous Notes * Telephone Encounter - Mari Sims RN - 04/09/2025 12:34 PM EDT Call placed to Dr. Montgomery's office regarding pt referral that was placed. Informed office that pt is very hard to get in touch with but per pt the best time to possibly reach him would be after 4:00pm or even suggested sending a letter as pt was responsive to letter sent from med/onc clinic. Per clinic, Dr. Montgomery is in clinic today and they will discuss next steps with him. * Addendum Note - Mari Sims RN - 04/03/2025 11:30 AM EDTAddended by: MARI SIMS on: 04/03/2025 11:30 AM Modules accepted: Orders * Telephone Encounter - Mari Sims RN - 04/03/2025 10:08 AM EDT Spoke to pt, informed him that per MD he had one spot on his lung that was active on PET scan. Informed pt that if he wanted to see pulm then we can make referral so he can have a bx. Or if pt would rather wait, he can discuss this in clinic with MD. Pt elected to move forward. Will make referral to pulm. Informed pt of this. Pt voiced understanding and is agreeable. Referral to Dr. Montgomery placed. * Telephone Encounter - Suzette Ortez, Clerical Staff - 04/03/2025 9:31 AM EDT pt returning call okay'd to transfer to RN * Telephone Encounter - Mari Sims RN - 03/26/2025 11:55 AM EDT Call placed to pt, no answer voicemail full. Call placed to pt's brother, no answer voicemail did not meat pickler. Please send letter to pt asking to call clinic to discuss next steps. * Telephone Encounter - Mari Sims RN - 03/20/2025 2:55 PM EDT Call placed to pt regarding scan results. No answer, voicemail full. Call placed to pt's brother, no answer left voicemail to return call to clinic. * Telephone Encounter - Mari Sims RN - 03/17/2025 12:46 PM EDT Attempted to contact pt regarding PET results. No answer, voicemail full. * Telephone Encounter - Mari Sims RN - 03/14/2025 12:15 PM EDT Call placed to pt regarding results, no answer voicemail is full. Called pt's brother Chris, no answer left voicemail to have pt return call to clinic. ----- Message from Joe Tucker MD sent at 03/13/2025 4:25 PM EDT ----- I tried getting results to David but his voicemail is full. Can you try later this week and let him know that only the one nodule on his lung is active on PET and I think the next best step would be to arrange a biopsy. This has been really slow growing, so if he wants to wait to discuss with me at next visit, that should be OK. If he wants to get the ball rolling then a referral to Dr Montgomery in Pulm is next step. documented in this encounter Plan of Treatment Upcoming Encounters Date Type Department Care Team (Late st Contact Info) Description 04/21/2025 7:00 PM EDT Appointment [facility] [address] [place] [address] Kareem Montgomery MD [address] [place] [address] 04/22/2025 7:30 AM EDT Appointment [facility] END[facility] [place] [address] Kareem Montgomery MD [address] [place] [address] 05/09/2025 10:00 AM EDT [place]ointment [place] [address] 05/09/2025 10:30 AM EDT [facility]ointment [facility] [place] [address] Joe Tucker MD [address] [place] [address] [address] [place] [id number] Scheduled Referrals Name Type Priority Associated Diagnoses Orde r Schedule AMB REFERRAL TO PULMONOLOGY Outpatient Referral STAT Atherosclerosis of [place] coronary artery, unspecified whether angina present, unspecified whether [place] or transplanted heart Lung nodule Ordered: 04/03/2025 documented as of this encounter Goals Goal Patient Goal Type Associated Problems Recent Progress Patient-Stated? Author Blood Pressure < 140/90 Blood Pressure 105/61(2024 3:07 PM EDT) No Sonal Lynn Maintain a healthy diet, exercise regularly and maintain an ideal body weight General No Sonal Lynn Stay Tobacco Free Lifestyle No Sonal Lynn documented as of this encounter Visit Diagnoses Diagnosis Atherosclerosis of [place] coronary artery, unspecified whether angina present, unspecified whether [place] or transplanted heart- Primary Lung nodule Solitary pulmonary nodule documented in this encounter Care Teams Felt Strip Finisher Relationship Specialty Start Date End Date Joe Tucker MD [address] [facility] [place] [address] Internal Medicine-Hematology and Oncology 04/08/24 Gladys Osuna, RN Registered Nurse 09/09/24 documented as of this encounter
--- OUTSIDE RECORDS SUMMARY | 2025-04-14 07:43 | XMS_ITS | Encounter Summary ---
Author Organization [place] [address] Care Team Providers Care Powerhouse Mechanic Supervisor Name Role Phone Joe Tucker MD Unavailable [phone] Gladys Osuna RN Unavailable Unavailable Reason for Referral * Surgical (Routine) - Authorization Not Needed Specialty Diagnoses / Procedures Referred By Contac t Referred To Contact Gastroenterology Diagnoses Lung mass Procedures [facility] INCL FLUOR GDNCE DX W/CELL WASHG SPX Kareem Montgomery MD [address] [place] [address] Phone: tel: fax: Referral ID Status Reason Start Date Expiration Date Visits Requested Visits Authorized [id number] Authorization Not Needed 04/09/2025 04/09/2026 1 1 Encounter Details Date Type Department Care Team (Late st Contact Info) Description 04/09/2025 Orders Only SEP Pulmonology [facility] [address] [facility] Building [address] [place] [address] Kareem Montgomery MD [address] [place] [address] Lung mass (Primary Dx) Social History Tobacco [...] as of this encounter Progress Notes * Kareem Montgomery MD - 04/09/2025 5:38 PM EDT Images from the original note were not included. Please schedule for ION/EBUS on 04/22 at 730 am. Needs to be off plavix for 7 days. Needs CTION prior. Order for bronch in. Kareem Montgomery MD * Jasvir Bryant MA - 04/09/2025 5:38 PM EDT Working on it now * Jasvir Bryant MA - 04/09/2025 5:38 PM EDT Called pt went over ct ion and bronch date time and instructions. Told to hold the Plavix for 7 days pt understood. documented in this encounter Plan of Treatment Upcoming Encounters Date Type Department Care Team (Late st Contact Info) Description 04/21/2025 7:00 PM EDT Appointment [facility] [address] [place] [address] Kareem Montgomery MD [address] [place] [address] 04/22/2025 7:30 AM EDT Appointment [facility] [place] [address] Kareem Montgomery MD [address] [place] [address] 05/09/2025 10:00 AM EDT Appointment [facility] [place], [place] [id number] 05/09/2025 10:30 AM EDT Appointment [facility] [place], [place] [id number] Joe Tucker MD [address] [facility] [place] [address] Scheduled Orders Name Type Priority Associated Diagnoses Orde r Schedule BRONCHOSCOPY Endoscopy Routine Lung mass 1 Occurrences starting 04/09/2025 until 04/09/2026 documented as of this encounter Goals Goal [...] chest documented in this encounter Care Teams Powerhouse Mechanic Supervisor Relationship Specialty Start Date End Date Joe Tucker MD [address] [facility] [place] [address] Internal Medicine-Hematology and Oncology 04/08/24 Gladys Osuna, RN Registered Nurse 09/09/24 documented as of this encounter
--- OUTSIDE RECORDS SUMMARY | 2025-04-14 07:43 | XMS_ITS | Clinical Summary ---
Author Organization [facility] Address [address] [facility] [address] [place], [place] [address] Phone Care Team Providers Care Five Piece Expansion Maker Hand Name Role Phone Joe Tucker MD Unavailable [phone] Gladys Osuna RN Unavailable Unavailable Allergies [...] by mouth daily. 30 Capsule 2 02/25/2025 Active Active Problems Patient Care Coordination No te Formatting of this note migh t be different from the original. Care gap audit completed by Mary Deutsch RN on 12/09/2020. Problem Noted Date Diagnosed Date Medication monitoring encounter 04/10/2024 Dysuria 04/10/2024 Basal cell carcinoma of skin of nose 12/27/2023 Acute prostatitis 12/27/2023 Coronary atherosclerosis of minto coronary rocio ry 12/27/2023 Basal cell carcinoma (BCC) o f skin of upper extremity including shoulder 12/27/2023 Uric acid nephrolithiasis 12/27/2023 Exposure to hazardous material 12/27/2023 Hypertension, essential 12/27/2023 Hyperlipemia 12/27/2023 Other insomnia 12/27/2023 Carotid artery stenosis 12/27/2023 Polyp of colon 12/27/2023 Prolonged posttraumatic stress disorder 12/27/19 24 Encounters Date Type Department Care Team Description 04/11/2025 Orders Only SEP Pulmonology [facility] [address] [address] Jasvir Bryant MA Lung mass (Primary Dx) 04/09/2025 Orders Only SEP Pulmonology [facility] [address] [address] Kareem Montgomery MD Lung mass (Primary Dx) 04/03/2025 Telephone SEP Pulmonology [facility] [address] [place] [address] Kareem Montgomery MD Other (Lung nodule. EMERGENCY REFERRAL from Dr. Joe Tucker. Please see note placed in referral by Mari Sims RN, Per Dr. Tucker, please schedule pt with Dr. Montgomery. Pt has nodule on lung that is active on PET scan. Dr. Tucker would like pt to schedule biopsy. Please call patient to schedule Pulm appointment.) 03/13/2025 Results [facility]-Up [facility] [place], [place] [id number] Joe Tucker MD PET CT WHOLE BODY 03/01/2025 8:31 AM EDT - 03/01/2025 11:59 PM EDT Hospital Encounter [facility] [place] [address] Joe Tucker MD Blood tests prior to treatment or procedure (Primary Dx); Basal cell carcinoma of skin of nose; Lung mass Discharge Disposition: Home or Self Care 02/25/2025 Specialty Pharmacy [facility] [address] [place] [address] Pat Segundo [facility] Pharmacy Oncology Management ([employer]) 02/20/2025 7:40 AM EDT Tumor Board [facility] [place] [address] 2025 Telephone [facility] [place], [place] [phone] Joe Tucker MD Results (Pt requesting results of CT Chest done yesterday, and hasn't heard anything about his lip) 02/13/2025 11:06 AM EDT - 02/13/2025 11:59 PM EDT Hospital Encounter [facility] [address] [place] [address] Joe Tucker MD Basal cell carcinoma of skin of nose Discharge Disposition: Home or Self Care 02/12/2025 7:50 AM EDT Tumor Board [facility] [address] [place], [place] [id number] 02/07/2025 2:51 PM EDT - 02/07/2025 11:59 PM EDT Hospital Encounter [facility] [place], [place] [phone] Joe Tucker MD Basal cell carcinoma of skin of nose (Primary Dx) Discharge Disposition: Home or Self Care 02/07/2025 2:47 PM EDT - 02/07/2025 2:50 PM EDT Hospital Encounter [facility] [place], [place] [phone] Basal cell carcinoma of skin of nose; Basal cell carcinoma (BCC) of skin of upper extremity including shoulder, unspecified laterality Discharge Disposition: Home or Self Care 02/07/2025 Orders Only [facility] [place] [address] Joe Tucker MD Basal cell carcinoma of skin of nose (Primary Dx) 02/04/2025 Telephone [facility] [place], [place] [phone] Joe Tucker MD Patient Question (Asking when next appt scheduled ) 01/17/2025 Telephone [facility] [place], [place] [phone] Joe Tucker MD Information Only (02/07/25 ) from Last 3 Months Immunizations Immunization Administration [...] Sign Reading Time Taken Comments Blood Pressure 105/61 02/07/2025 3:07 PM EDT Pulse 59 02/07/2025 3:07 PM EDT Temperature 36.7 C (98.1 F) 02/07/2025 3:07 PM EDT Respiratory Rate 16 02/07/2025 3:07 PM EDT Oxygen Saturation 98% 02/07/2025 3:07 PM EDT Inhaled Oxygen Concentration - - Weight 61.1 kg (134 lb 12.8 oz) 02/07/2025 3:07 PM EDT Height 172.7 cm (5' 8 ) 02/07/2025 3:07 PM EDT Body Mass Index 20.5 02/07/2025 3:07 PM EDT Plan of Treatment Upcoming Encounters Date Type Department Care Team (Late st Contact Info) Description 04/21/2025 7:00 PM EDT Appointment [facility] [place] [facility] [address] [place] [address] Kareem Montgomery MD [address] [place] [address] 04/22/2025 7:30 AM EDT Appointment [facility] [place] [address] Kareem Montgomery MD [address] [place] [address] 05/09/2025 10:00 AM EDT Appointment [place] [address] 05/09/2025 10:30 AM EDT Appointment [facility] [place] [address] Joe Tucker MD [address] [place] [address] [place] [address] Health Maintenance Due Date Last Done Comments Annual Wellness Exam 1953 Hepatitis C Screening 1969 Cologuard 02/15/1996 Colon Cancer Screening 02/15/1996 Colonoscopy 02/15/1996 FIT 02/15/1996 Sigmoidoscopy 02/15/1996 Virtual Colonography 02/15/1996 AAA Screening 02/15/2016 Zoster (2 of 2) 01/10/2022 11/15/2021 COVID-19 Vaccine (3 - 2024-2 6 season) 2025 12/05/2020, 11/03/2020 Influenza Vaccine (#1) 2025 06/18/2019 [...] Lynn Stay Tobacco Free Lifestyle Sonal Herring Procedures Procedure Name Priority Date/Time Associated Diagnosis Comments PET CT WHOLE BODY MARIE 03/01/2025 10: 48 AM EDT Basal cell carcinoma of skin of nose Lung mass GLUCOSE METER POC Routine 03/01/2025 8:[address] CHEST WO CONTRAST Routine 02/13/2025 11:28 AM EDT Basal cell carcinoma of skin of nose CREATINE KINASE STAT 02/07/2025 2:50 PM EDT Basal cell carcinoma of skin of nose Basal cell carcinoma (BCC) of skin of upper extremity including shoulder, unspecified laterality COMPREHENSIVE METABOLIC PANEL STAT 02/07/2025 2:50 PM EDT Basal cell carcinoma of skin of nose Basal cell carcinoma (BCC) of skin of upper extremity including shoulder, unspecified laterality CBC WITH DIFF STAT 02/07/2025 2:50 PM EDT Basal cell carcinoma of skin of nose Basal cell carcinoma (BCC) of skin of upper extremity including shoulder, unspecified laterality from Last 3 Months Results * PET CT WHOLE BODY (03/01/2025 [...] HISTORY: C44.311-Basal cell carcinoma of skin of hqve-IHH-40-CM R91.8-Other nonspecific abnormal finding of lung mawoz-JDJ-87-CM. 75-year-old male with basal cell carcinoma of [...] CLINICAL HISTORY: C44.311-Basal cell carcinoma of skin syhqop-WMU-88-CM R91.8-Other nonspecific abnormal finding of lung pvorb-LDG-28-CM. 75-year-old male with basal cell carcinoma of [...] GLUCOSE METER POC (03/01/2025 8:45 AM EDT) [facility] Signature Glucose Meter POC 98 70 - 100 mg/dL 03/01/2025 8:47 AM EDT [facility] Sample Type Capillary 03/01/2025 8:47 AM EDT [facility] Patient Status Non-Critical Patient 03/01/2025 8:47 AM EDT [facility] Blood BLOOD SPECIMEN / Unknown 03/01/2025 8:45 AM EDT 03/01/2025 8:47 AM EDT us Joe Tucker MD POINT OF CARE TEST ORDERABLES Final Result [facility] [address] [place] [address] * CT CHEST WO CONTRAST (02/13/2025 11:28 [...] HISTORY: C44.311-Basal cell carcinoma of skin of jwkb-QCG-50-CM. COMPARISON: None. PROCEDURE COMMENTS: Multi-detector CT of the chest with multiplanar reconstructions per protocol. No contrast given. Dose 1 : CT DLP Total : 322.3 mGycm DLP Spiral Max : 322.3 mGycm Maximum CTDI Vol : 13.9 mGy SSDE : 19.738 mGy SSDE Diameter : 26.2 cm SSDE Source : [employer] FINDINGS: Mild emphysema. Diffuse mild bronchial wall [...] CLINICAL HISTORY: C44.311-Basal cell carcinoma of skin srdnew-SHF-77-CM. COMPARISON: None. PROCEDURE COMMENTS: Multi-detector CT of the chest with multiplanar reconstructions per protocol. No contrast given. Dose 1 : CT DLP Total : 322.3 mGycm DLP Spiral Max : 322.3 mGycm Maximum CTDI Vol : 13.9 mGy SSDE : 19.738 mGy SSDE Diameter : 26.2 cm SSDE Source : [employer] FINDINGS: Mild emphysema. Diffuse mild bronchial wall [...] the ordering clinician. us Joe Tucker MD IM CT ORDERABLES Final Result * CBC WITH DIFF (02/07/2025 2:50 PM EDT) WBC 6.6 3.7 - 10.3 x10(3)/mcL 02/07/2025 3:07 PM EDT [facility] RBC 4.63 4.60 - 6.10 x10(6)/mcL 02/07/2025 3:07 PM EDT [facility] Hgb 13.9 13.7 - 17.5 g/dL 02/07/2025 3:07 PM EDT [facility] Hct 41.5 40.0 - 51.0 % 02/07/2025 3:07 PM EDT [facility] MCV 89.6 80.0 - 100.0 fL 02/07/2025 3:07 PM EDT [facility] MCH 30.0 26.0 - 34.0 pg 02/07/2025 3:07 PM EDT [facility] MCHC 33.5 30.7 - 35.5 g/dL 02/07/2025 3:07 PM EDT [facility] RDW 13.4 <=14.9 % 02/07/2025 3:07 PM EDT [facility] Platelet 216 155 - 369 x10(3)/[facility] 02/07/2025 3:07 PM EDT [facility] MPV 10.1 8.8 - 12.5 fL 02/07/2025 3:07 PM EDT [facility] Neut # Prelim 2.5 1.6 - 6.1 x10(3)/[facility] 02/07/2025 3:07 PM EDT [facility] Comment:Preliminary automate d absolute neutrophil count. Value may change if manual differential is indicated. Neut Percent 38.0 % 02/07/2025 3:07 PM EDT [facility] Comment:Neutrophils equals s egs plus bands Imm Gran% 0.2 % 02/07/2025 3:07 PM EDT [facility] Comment:Automated count of m etamyelocytes, myelocytes and promyelocytes. Lymph Percent 48.0 % 02/07/2025 3:07 PM EDT [facility] Will Percent 9.4 % 02/07/2025 3:07 PM EDT [facility] Eos Percent 3.3 % 02/07/2025 3:07 PM EDT [facility] Baso Percent 1.1 % 02/07/2025 3:07 PM EDT [facility] Neut # 2.5 1.6 - 6.1 x10(3)/[facility] 02/07/2025 3:07 PM EDT [facility] Comment:Neutrophils equals s egs plus bands IMMGRAN# 0.0 0.0 - 0.1 x10(3)/[facility] 02/07/2025 3:07 PM EDT [facility] Comment:Automated count of m etamyelocytes, myelocytes and promyelocytes. An absolute IG <0.1 is reported as 0.0. Lymph # 3.2 1.2 - 3.9 x10(3)/[facility] 02/07/2025 3:07 PM EDT [facility] Will # 0.6 0.3 - 0.9 x10(3)/[facility] 02/07/2025 3:07 PM EDT [facility] [address] Eos# 0.2 0.0 - 0.5 x10(3)/mcL 02/07/2025 3:07 PM EDT [facility] [address] Baso # 0.1 0.0 - 0.1 x10(3)/mcL 02/07/2025 3:07 PM EDT [facility] [address] Blood VENOUS BLOOD / Unknown Venipuncture / Unknown 02/07/2025 2:50 PM EDT 02/07/2025 2:50 PM EDT Joe Tucker MD HEMATOLOGY ORDERABLES Final Re sult Performing Organization Address City/[facility]/ZIP Co de Phone Number [facility] [address], [facility] 1 [facility], [place] [address] * (ABNORMAL) CREATINE KINASE (02/07/2025 2:50 PM EDT) CK 36(L) 39 - 308 U/L 02/07/2025 3:11 PM EDT [facility] Blood VENOUS BLOOD / Unknown Venipuncture / Unknown 02/07/2025 2:50 PM EDT 02/07/2025 2:50 PM EDT us Joe Tucker MD CHEMISTRY ORDERABLES Final Res ult Performing Organization Address City/[facility]/ZIP Co de Phone Number [facility] [address] [place] [address] * (ABNORMAL) COMPREHENSIVE METABOLIC PANEL (02/07/2025 2:50 PM EDT) Sodium 136 136 - 145 mmol/L 02/07/2025 3:12 PM EDT [facility] Potassium 3.7 3.5 - 5.0 mmol/L 02/07/2025 3:12 PM EDT [facility] Chloride 100 98 - 107 mmol/L 02/07/2025 3:12 PM EDT [facility] Total CO2 26 22 - 29 mmol/L 02/07/2025 3:12 PM EDT [facility] Anion Gap 10 7 - 16 mmol/L 02/07/2025 3:12 PM EDT [facility] Calcium 8.5(L) 8.8 - 10.4 mg/dL 02/07/2025 3:12 PM EDT [facility] Glucose Lvl 79 70 - 99 mg/dL 02/07/2025 3:12 PM EDT [facility] BUN 17 8 - 23 mg/dL 02/07/2025 3:12 PM EDT [facility] Creatinine 0.86 0.67 - 1.30 mg/dL 02/07/2025 3:12 PM EDT [facility] Albumin 3.5 3.2 - 4.6 gm/dL 02/07/2025 3:12 PM EDT [facility] Total Protein 7.8 6.4 - 8.3 gm/dL 02/07/2025 3:12 PM EDT [facility] Bili Total 0.4 0.2 - 1.4 mg/dL 02/07/2025 3:12 PM EDT [facility] ALT 9 <=41 U/L 02/07/2025 3:12 PM EDT [facility] AST 16 <=40 U/L 02/07/2025 3:12 PM EDT [facility] Alk Phos 110 40 - 129 U/L 02/07/2025 3:12 PM EDT [facility] eGFR (CKD-EPIcr 2020) 91 >=60 mL/min/1.7 3 m2 02/07/2025 3:12 PM EDT [facility] Comment:Estimated GFR was ca lculated using the CKD-EPIcr (2020) equation refit without race. The equation is recommended by the National Kidney Foundation - [place] Society of Nephrology Task Force. Blood VENOUS BLOOD / Unknown Venipuncture / Unknown 02/07/2025 2:50 PM EDT 02/07/2025 2:50 PM EDT us Joe Tucker MD CHEMISTRY ORDERABLES Final Res ult [facility] [address] [place] [phone] from Last 3 Months Insurance [facility] MR Care Teams Five Piece Expansion Maker Hand Relationship Specialty Start Date End Date Joe Tucker MD [address] [place] [address] [place] [address] Internal Medicine-Hematology and Oncology 04/08/24 Gladys Osuna, RN Registered Nurse 09/09/24
--- OUTSIDE RECORDS SUMMARY | 2025-04-14 07:43 | XMS_ITS | Encounter Summary ---
Author Organization [place] [address] Care Team Providers Care Outside Plant Field Engineer Name Role Phone Joe Tucker MD Unavailable [phone] Gladys Osuna RN Unavailable Unavailable Reason for Visit * Reason Onset Date Comments Other 04/03/2025 Lung nodule. ALLEGRA RGENCY REFERRAL from Dr. Joe Tucker. Please see note placed in referral by Mari Sims RN, Per Dr. Tucker, please schedule pt with Dr. Montgomery. Pt has nodule on lung that is active on PET scan. Dr. Tucker would like pt to schedule biopsy. Please call patient to schedule Pulm appointment. Encounter Details Date Type Department Care Team (Late st Contact Info) Description 04/03/2025 Telephone SEP Pulmonology [facility] [address] [place] [address] Kareem Montgomery MD [address] [place] [address] Other (Lung nodule. EMERGENCY REFERRAL from Dr. Joe Tucker. Please see note placed in referral by Mari Sims RN, Per Dr. Tucker, please schedule pt with Dr. Montgomery. Pt has nodule on lung that is active on PET scan. Dr. Tucker would like pt to schedule biopsy. Please call patient to schedule Pulm appointment.) Social History Tobacco Use Types Packs/Day Years [...] encounter Miscellaneous Notes * Telephone Encounter - Sherry Dial MA - 04/10/2025 11:53 AM EDT Where do you want him added? * Telephone Encounter - Aline Oleary MA - 04/09/2025 12:[address] Tucker office called and said it is best to call pt after 4pm to get scheduled * Telephone Encounter - Marlyn Bloom MA - 04/03/2025 3:47 PM EDT Please let me know when to schedule documented in this encounter Plan of Treatment Upcoming Encounters Date Type Department Care Team (Late st Contact Info) Description 04/21/2025 7:00 PM EDT Appointment [facility] [facility] [address] [place] [address] Kareem Montgomery MD [address] [place] [address] 04/22/2025 7:30 AM EDT Appointment [facility] END[facility] [place] [address] Kareem Montgomery MD [address] [place] [address] 05/09/2025 10:00 AM EDT Appointment [facility] [address] 05/09/2025 10:30 AM EDT Appointment [facility] Medical On[facility] [place] [address] Joe Tucker MD [address] [facility] [place] [place] [address] documented as of this encounter Goals [...] on filedocumented in this encounter Care Teams Outside Plant Field Engineer Relationship Specialty Start Date End Date Joe Tucker MD [address] [facility] [place] [address] Internal Medicine-Hematology and Oncology 04/08/24 Gladys Osuna, RN Registered Nurse 09/09/24 documented as of this encounter
--- OUTSIDE RECORDS SUMMARY | 2025-04-14 07:43 | XMS_ITS | Encounter Summary ---
Author Organization [facility] Address [address] [id number] Care Team Providers Care Turntable Man Name Role Phone Unavailable Primary Care Provider Unavailabl e Reason for Referral * Consultation (Routine) - Authorized Specialty Diagnoses / Procedures Referred By Contac t Referred To Contact Otolaryngology Diagnoses Basal cell carcinoma (BCC) of skin of lip Leigh Duron MD [address] [place] [address] Phone: tel: fax: Deng Johnson MD [address] [facility] [address] [place] [phone] Phone: tel: fax: Referral ID Status Reason Start Date Expiration Date Visits Requested Visits Authorized [id number] Authorized Specialty Services Required 12/11/2023 06/11/2025 1 1 Encounter Details Date Type Department Care Team (Late st Contact Info) Description 12/11/2023 Community Orders Community Practice [address] [place] [address] Leigh Duron MD [address] [place] [address] Basal cell carcinoma (BCC) of skin of [...]
--- OUTSIDE RECORDS SUMMARY | 2025-04-14 07:43 | XMS_ITS | Clinical Summary ---
Author Organization Healthcare Address [address] [place] [address] Care Team Providers Care Unit Control Worker Name Role Phone Unavailable Primary Care Provider [...] Screening 1950 [facility]-Medicare Annual Wellness (AWV) 1950 [facility]-/Child/Adol SDOH Screenings 1950 [facility]- SDOH Screenings 1969 [facility]-Adult SDOH Screenings 1969 [facility]-DTaP,Tdap,and Td Vaccine s (1 - Tdap) 1970 CT Colonography 02/15/1996 Colonoscopy 02/15/1996 FIT-DNA 02/15/1996 FIT 02/15/1996 FOBT 02/15/1996 Sigmoidoscopy 02/15/1996 [facility]-Colorectal Cancer Screening 02/15/1996 [facility]-Zoster Vaccines (1 of 2) 2001 [facility]-Pneumococcal Vaccine: 50 + Years (2 of 2 - PCV) 10/05/2023 10/04/2022, 06/18/2019 [id number] Vaccine (3 - 2024- season) 2025 12/05/2020, 11/03/2020 [facility]-Influenza Vaccine (#1) 2025 06/18/2019 [...]
--- OUTSIDE RECORDS SUMMARY | 2025-04-14 07:43 | XMS_ITS | Encounter Summary ---
Author Organization [place] [address] Care Team Providers Care Press Technician Name Role Phone Joe Tucker MD Unavailable [phone] Trini Navarro RN Unavailable Unavailable Reason for Referral * MRI/CAT Scan (Urgent) - Authorized Specialty Diagnoses / Procedures Referred By Contac t Referred To Contact Radiology Diagnoses Basal cell carcinoma of skin of nose Lung mass Procedures PET CT WHOLE BODY Joe Tucker MD [address] [place] [address] [place] [address] Phone: tel: fax: [facility] [place] [address] Phone: tel: fax: Referral ID Status Reason Start Date Expiration Date V isits Requested Visits Authorized [id number] Authorized 02/25/2025 02/25/2026 5 5 Reason for Visit * Reason Onset Date Comments Results 2025 Pt requesting re sults of CT Chest done yesterday, and hasn't heard anything about his lip Encounter Details Date Type Department Care Team (Late st Contact Info) Description 2025 [facility]phone [facility] [place] [address] Joe Tucker MD [address] [place] [address] Results (Pt requesting results of CT Chest done yesterday, and hasn't heard anything about his lip) Social History Tobacco Use Types Packs/Day Years [...] on file documented as of this encounter Ordered Prescriptions Prescription Sig Dispense Quantity Refills Last Filled Start Date End Date vismodegib 150 mg Oral CapsuleIndications :Basal cell carcinoma of skin of nose Take 1 Capsule by mouth daily. 30 Capsule 2 02/25/2025 documented in this encounter Miscellaneous Notes * Telephone Encounter - Xiao Chavez CNA - 02/25/2025 11:11 AM EDT Scheduled PET with patient * Addendum Note - Trini Navarro RN - 02/25/2025 10:59 AM EDTAddended by: TRINI NAVARRO on: 02/25/2025 10:59 AM Modules accepted: Orders * Telephone Encounter - Trini Navarro RN - 02/25/2025 10:58 AM EDT Scheduling: please help pt get scheduled for PET * Telephone Encounter - Trini Navarro RN - 02/25/2025 10:57 AM EDT Ok for fill of Vismodegib per MD. * Addendum Note - Trini Navarro RN - 02/25/2025 10:06 AM EDTAddended by: TRINI NAVARRO on: 02/25/2025 10:06 AM Modules accepted: Orders * Telephone Encounter - Trini Navarro RN - 02/25/2025 10:06 AM EDT Patient agreeable to PET, asking for Vismodegib refill. SC sent to MD. * Telephone Encounter - Trini Navarro RN - 02/24/2025 2:41 PM EDT MD reviewed imaging and there has been some slight growth so recommendation is to get a PET scan. * Telephone Encounter - Trini Navarro RN - 02/20/2025 8:36 AM EDT Imaging from the [facility] received and on Dr. Tucker's desk for review. * Telephone Encounter - Trini Navarro RN - 02/18/2025 1:36 PM EDT [facility] * Telephone Encounter - Trini Navarro RN - 02/18/2025 11:24 AM EDT [facility] 2021. MD updated. * Telephone Encounter - Trini Navarro RN - 02/17/2025 12:20 PM EDT MD will call patient today to discuss. * Telephone Encounter - Quita Brandon NA - 02/17/2025 10:03 AM EDT Patient called again asking for update on scans and lip. * Telephone Encounter - Trini Navarro RN - 2025 1:41 PM EDT Placed order for thoracic TB. * Telephone Encounter - Trini Navarro RN - 2025 12:[address] chest IMPRESSION: 1. Irregular pulmonary mass in the right middle lobe measures up to 3.5 cm nonspecific without prior studies available for comparison but concerning for pulmonary malignancy. 2. Additional pulmonary nodule in the peripheral left lower lobe measures up to 7 mm, nonspecific. 3. No lymphadenopathy in the chest. SC sent to . * Telephone Encounter - Brie Garcia DTR - 2025 12:13 PM EDT Caller name: David Relationship/department: Patient Preferred call back number: [phone] Description of test being resulted (be specific, test name,date): CT Chest Are the results available in Epic: Yes Does the patient have an appointment scheduled to review results: No Ordering physician: Dr. Tucker He also states that he hasn't heard anything about his lip. documented in this encounter Plan of Treatment Upcoming Encounters Date Type Department Care Team (Late st Contact Info) Description 04/21/2025 7:00 PM EDT Appointment [facility] [place] [facility] [address] [place], [place] [address] Kareem Montgomery MD [address] [place] [address] 04/22/2025 7:30 AM EDT Appointment [facility] [place] [address] Kareem Montgomery MD [address] [place] [address] 05/09/2025 10:00 AM EDT Appointment [place] [address] 05/09/2025 10:30 AM EDT [facility]ointment [facility] [place], [place] [id number] Joe Tucker MD [address] [place] [address] [place], [place] [id number] documented as of this encounter Goals Goal Patient Goal Type Associated Problems Recent Progress Patient-Stated? Author Blood Pressure < 140/90 Blood Pressure 105/61(2024 3:07 PM EDT) No Sonal Lynn Maintain a healthy diet, exercise regularly and maintain an ideal body weight General No Sonal Lynn Stay Tobacco Free Lifestyle Sonal Herring documented as of this encounter Results * PET CT WHOLE [...] HISTORY: C44.311-Basal cell carcinoma of skin of watc-ADI-64-CM R91.8-Other nonspecific abnormal finding of lung [id number]. 75-year-old male with basal cell carcinoma of [...] CLINICAL HISTORY: C44.311-Basal cell carcinoma of skin huvgds-EZZ-90-CM R91.8-Other nonspecific abnormal finding of lung [id number]-RYY-13-CM. 75-year-old male with basal cell carcinoma of [...] please contactthe office of the ordering clinician. Joe Tucker MD IM PET ORDERABLES Final Resul t documented in this encounter Visit Diagnoses Diagnosis Basal cell carcinoma of skin of nose- Primary Basal cell carcinoma of skin of other and unspecified parts of face Lung mass Swelling, mass, or lump in chest Blood tests prior to treatment or procedure- Primary Pre-procedural laboratory examination Basal cell carcinoma of skin of nose Basal cell carcinoma of skin of other and unspecified parts of face Lung mass Swelling, mass, or lump in chest documented in this encounter Discontinued Medications Medication Sig Discontinue Reason Start Date End Da te vismodegib 150 mg Oral CapsuleIndications:Basal cell carcinoma of skin of nose Take 1 Capsule by mouth daily. Reorder 09/11/2024 02/25/2025 documented as of this encounter Orders Appointment Requests Count Last Ordered Date rst Ordered Date [facility] ONCBCN BASE TUMOR BOARD 1 2025 documented in this encounter Care Teams Press Technician Relationship Specialty Start Date End Date Joe Tucker MD [address] [place] [address] [place] [address] Internal Medicine-Hematology and Oncology 04/08/24 Trini Navarro, RN Registered Nurse 09/09/24 documented as of this encounter
--- OUTSIDE RECORDS SUMMARY | 2025-04-14 07:43 | XMS_ITS | Encounter Summary ---
Author Organization [place] [address] Care Team Providers Care Tail Board Worker Name Role Phone Joe Tucker MD Unavailable [phone] Gladys Osuna RN Unavailable Unavailable Reason for Visit * Reason Comments Pharmacy Oncology Management Erivedge Encounter Details Date Type Department Care Team (Latest Contact Info) Description 02/25/2025 Specialty Pharmacy [facility] [address] [phone] Pat Segundo RPH Pharmacy Oncology Management (Erivedge) Social History Tobacco Use Types Packs/Day Years [...] as of this encounter Progress Notes * Pat Segundo RPH - 02/25/2025 11:03 AM EDT [facility] Prescription received for Erivedge (150mg). Will release to [facility] due to insurance lockout. Per previous documentation, [facility] documented in this encounter Plan of Treatment Upcoming Encounters Date Type Department Care Team (Late st Contact Info) Description 04/21/2025 7:00 PM EDT Appointment [facility] [place] [facility] [address] [place] [address] Kareem Montgomery MD [address] [place] [address] 04/22/2025 7:30 AM EDT Appointment [facility] [place] [address] Kareem Montgomery MD [address] [place] [address] 05/09/2025 10:00 AM EDT Appointment [facility] [place], [place] [id number] 05/09/2025 10:30 AM EDT [facility]ointment [facility] [place] [address] Joe Tucker MD [address] [place] [address] [place] [address] documented as of this encounter Goals Goal [...] on filedocumented in this encounter Care Teams Tail Board Worker Relationship Specialty Start Date End Date Joe Tucker MD [address] [facility] [place] [address] Internal Medicine-Hematology and Oncology 04/08/24 Gladys Osuna, RN Registered Nurse 09/09/24 documented as of this encounter
== END 2025-04-14 23:59 | disposition home or self-care (01) ==
PROVIDERS: Visit Provider Student in an Organized Health Care Education/Training Program
DX: I34.0 Nonrheumatic mitral (valve) insufficiency (principal); I11.9 Hypertensive heart disease without heart failure; E78.5 Hyperlipidemia, unspecified; I25.10 Atherosclerotic heart disease of native coronary artery without angina pectoris; Z95.1 Presence of aortocoronary bypass graft; F17.200 Nicotine dependence, unspecified, uncomplicated
CPT/HCPCS: 93306